=== PATIENT | female | born 1960 | race Caucasian/White ===

== ENCOUNTER → 2016-06-12 | Outpatient (CLI) | payer BC ==
[~2016-06-12] MED LIST: ACET1CAP18 PO; ALPR-138 PO; ALPR.25 PO; CHOL1TAB42 PO; IBUP400T20 PO; LEVO50TA4 PO; THYR15 OR
[2016-06-12 12:15] LABS: AUTOMATED NEUTROPHIL # 2.6 TH/MM3 (1.8-7.7); BASOPHIL % 0.5 % (0.0-2.0); EOSINOPHIL # 0.2 TH/MM3 (0-0.4); EOSINOPHIL % 3.1 % (0.0-4.0); HEMATOCRIT 43.4 % (35.0-46.0); HEMO FLAGS DIFF FINAL; LYMPH % 35.7 % (9.0-44.0); LYMPHOCYTE # 1.8 TH/MM3 (1.0-4.8); MEAN CELL VOLUME 88.6 FL (80.0-100.0); MEAN CORPUSCULAR HGB CONC 33.8 % (32.0-36.0); MONO % 8.6 % (0.0-8.0); NEUT % 52.1 % (16.0-70.0); PLATELET COUNT 260 TH/MM3 (150-450); RED BLOOD COUNT 4.91 MIL/MM3 (4.00-5.30); WHITE BLOOD COUNT 5.1 TH/MM3 (4.0-11.0)
[2016-06-12 12:26] LABS: BLOOD, URINE TRACE (NEG); GLUCOSE,URINE NEG (NEG); KETONE, URINE NEG (NEG); MUCUS URINE FEW /lpf (OCC); NITRITE,URINE NEG (NEG); PH, URINE 6.5 (5.0-8.5); SQUAMOUS EPITHELIAL CELL URINE 1 /hpf (0-5); URINE COLOR LIGHT-YELLOW (YELLW/STRAW)
[2016-06-12 12:47] LABS: BICARBONATE 31.8 MEQ/L (21.0-32.0); POTASSIUM 4.1 MEQ/L (3.5-5.1)
--- NOTE | 2016-06-12 15:58 | EKG ---
Date Performed: 06/12/2016 Time Performed: 11:34:06 PTAGE: 56 years EKG: Sinus rhythm NORMAL ECG NO PREVIOUS TRACING DOCTOR: Lance Pelaez Interpretating Date/Time 06/12/2016 15:57:34
== END ==
LOC: CPRE 10:49
PROVIDERS: ATTEND Obstetrics & Gynecology
DX: Z01.812 Encounter for preprocedural laboratory examination (principal); Z01.810 Encounter for preprocedural cardiovascular examination; D21.9 Benign neoplasm of connective and other soft tissue, unspecified
CPT/HCPCS: 36415; 80048; 81001; 84703; 85025; 93005

== ENCOUNTER 2016-06-15 05:27 | Observation (INO) | payer BC ==
--- NOTE | 2016-06-12 13:53 | MH ---
cc: JAVIER MEJIA DATE OF ADMISSION: 06/15/2016 ADMISSION DIAGNOSIS Multiple small fibroids causing pelvic pressure, constipation and bladder dysfunction. Menopause approximately one year ago. No postmenopausal bleeding. No history of abnormal Pap smear. HISTORY OF PRESENT CONDITION The patient is a 56-year-old white female, nulliparous, with LMP greater than 12 months ago. She had come into the office in March for an interval assessment of her fibroids. 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 She is being followed closely for her thyroid condition. She has had several laparoscopies, hysteroscopy and ablation with Dr. Velez and she is using bio identical hormones. On ultrasound she had a slightly enlarged endometrial stripe and moderately enlarged irregular uterus with normal adnexa, no fluid in the cul-de-sac. The fibroids appear stable on interval ultrasound and are not submucosal in nature. In March she expressed her strong desire to avoid a hysterectomy and asked if we would do a hysteroscopy to evaluate the intrauterine cavity to see if any fibroids could be removed from the intrauterine pathology. She did not get an endometrial biopsy at that time due to cervical stenosis. She comes in today scheduled for hysteroscopy and MyoSure. A very long discussion was performed with her and her about how we should look at what her symptomatology is and what her goals for surgery are. She has no bleeding pattern. She has a history of endometrial ablation. She has no cramping per say. What she has is constant pressure from the fibroids on both the bladder and on the rectum. On pelvic exam multiple small fibroids are palpable and irregular in nature, subserosal and on the surface of the uterus. The cervix is nulliparous and there is no descent. She wants to keep her cervix if at all possible. She has decided she wants to have her ovaries out. We therefore talked about laparoscopic-assisted supracervical hysterectomy with the use of a containment system to make sure that morcellation occurs in a contained environment and she would like to try this. We reviewed in detail the fact that uterine sarcoma cannot be diagnosed prior to surgery. We reviewed that we do not have the endometrial sampling preoperatively but again if this is placed in the bag the only cut intraoperatively would be across the cervix and will do this low enough that we have the endometrium intact. We talked about the risks of subsequent cervical pathology, the risks of having bleeding and having to do an open case removing the cervix. We talked about damage to bowel, bladder and blood vessels. At the end of the conversation she and her decided not to wait but rather reschedule the surgery instead of a hysteroscopic evaluation and possible MyoSure to do a laparoscopic supracervical hysterectomy with bilateral salpingo-oophorectomy with morcellation in the containment system. PAST MEDICAL HISTORY Her general health is good other than her hypothyroidism. She has no other chronic or systemic illnesses. ALLERGIES 1. COMPAZINE. 2. PEANUTS. 3. SOY. 4. PREDNISONE. SOCIAL HISTORY She does not smoke, drink or use illicit drugs. She tries to exercise regularly. She is 1, para 0. Her weight is 185 and she is 5 feet 7 inches, giving her a BMI of 29.8. FAMILY HISTORY Negative for breast, pelvic or colon cancer. REVIEW OF SYSTEMS She has no problem with her bowel or bladder or intercourse. She has no symptoms of menopause at this point. No postmenopausal bleeding. PHYSICAL EXAMINATION GENERAL: She is a minimally overweight white female. VITAL SIGNS: Weight 185, height 5 feet 7 inches, blood pressure 124/78. NECK: She has no thyroid enlargement. LUNGS: Her lungs are clear. HEART: Rate and rhythm are regular without murmur, heave or thrill. BREASTS: Previous exam was without dominant mass, nipple discharge, skin retraction or adenopathy. ABDOMEN: Benign. PELVIC: Perineum is estrogenized. The vault is elevated. She has a very narrow introitus and it is uncomfortable for her to tolerate any type of pelvic exam. The cervix is deep and elevated. It is nulliparous. The uterus is irregular with multiple small fibroids. Ovaries are not palpable. The uterus is mobile. Guaiac was negative. IMPRESSION/PLAN A menopausal female with multiple stable subserosal fibroids that are causing her chronic pressure and difficulty moving her bowels and bladder. There has been no bleeding since her menopause began over a year ago. She had only minimal bleeding prior to that due to an ablation with Dr. Velez. She has had several laparoscopes in the past and it is unclear if she is going to have any significant adhesions. Her goal is to address the issues as above and she feels comfortable with the plan that we have created. The risks, benefits, expectations, alternatives have been described in detail. She has signed consents and is scheduled for . MD JAY Pink/BT /1:11 PM /1:35 PM
[~2016-06-15] VITALS: Ht 170.2 cm; Wt 83.0 kg
[~2016-06-15 05:27] MED LIST changes: -ALPR-138 PO; -ALPR.25 PO; -IBUP400T20 PO; -THYR15 OR
[2016-06-15] MEDS ORDERED: LACTATED RINGER'S 1000 ML IV PRN (06:00)
[2016-06-15] MEDS ORDERED: POVIDONE IODINE 5% (ANTISEPSIS KIT) 4 APPLICATIONS EACH NARE PRN (06:00)
[2016-06-15] MEDS ORDERED: SODIUM CHLORID 0.9% 500 ML IV PRN (06:00)
[2016-06-15] MEDS ORDERED: ceFAZolin 2 GM PREMIX 50 ML IV SCH (06:00)
[2016-06-15] MEDS ORDERED: INSULIN HUMAN REGULAR 1,000 UNITS/10 ML VIAL SQ PRN (06:00)
[2016-06-15] MEDS ORDERED: CHLORHEXIDINE GLUCONATE 2 % 1 PACK (2 CLOTHS) TOPICAL PRN (06:00)
[2016-06-15] MEDS ORDERED: METOPROLOL TARTRATE 25 MG TAB PO PRN (06:00)
[2016-06-15 06:13] VITALS: BP 119/82; PULSE 82; RESP 18; TEMP 98.3; O2SAT 95
[2016-06-15] MEDS ORDERED: ACETAMINOPHEN 1000 MG/100 ML VIAL IV ONE (07:10)
[2016-06-15] MEDS ORDERED: DICLOFENAC SODIUM 37.5 MG/ML VIAL IV PUSH ONE (07:10)
[2016-06-15] MEDS ORDERED: fentaNYL CITRATE 250 MCG/5 ML AMP ONE (07:10)
[2016-06-15] MEDS ORDERED: MIDAZOLAM HCL 2 MG/2 ML VIAL ONE (07:10)
[2016-06-15] MEDS ORDERED: FAMOTIDINE 20 MG/2 ML VIAL ONE (07:11)
[2016-06-15] MEDS ORDERED: APREPITANT 40 MG CAP ONE (07:11)
[2016-06-15] MEDS ORDERED: ESTROGENS CONJUGATED VAG CREA 15 APPL/30 GM TUBE ONE (07:15)
[2016-06-15] MEDS ORDERED: VASOPRESSIN INJ 20 UNITS/ML VIAL ONE (07:15)
[2016-06-15] MEDS ORDERED: LIDOCAINE 1%/EPINEPHrine 1:100,000 SOLN 20 ML VIAL ONE (07:15)
--- NOTE | 2016-06-15 11:31 | PD.OP ---
Operative Report Date of Surgery: Jun 15, 2016 Preoperative Diagnosis: multiple fibroids with pressure and difficulty moving bowels and bladder Postoperative Diagnosis: same Procedure: LASH bilateral salpingectomy cystourethroscopy Surgeon: Earline Slater Ball Maker(s): Chance [id number] Operation and Findings: dictated uterus morcellated outside the body while contained in a bag ebl 200 Earline Slater MD Jun 15, 2016 11:31
--- NOTE | 2016-06-15 11:37 | HHI.DCPOC ---
Discharge Care Plan Report Symptoms to Your Doctor -Temperate above 100.5 degrees -Redness, of incision or excessive or foul smelling drainage -Unusual pain or calf pain -Increased vaginal bleeding -Painful or difficulty urinating -Feelings of extreme sadness or anxiety after 2 weeks Goals to Promote Your Health * To prevent worsening of your condition and complications * To maintain your health at the optimal level Directions to Meet Your Goals Take your medications as prescribed Follow your dietary instruction Follow activity as directed Ensure plenty of rest for recovery Drink fluids for hydration Keep your appointments as scheduled Take your immunizations and boosters as scheduled If your symptoms worsen call your PCP, if no PCP go to Urgent Care Center or Emergency Room Smoking is Dangerous to Your Health. Avoid second hand smoke Call the 24-hour crisis hotline for domestic abuse at Earline Slater MD Jun 15, 2016 11:37
[2016-06-15] MEDS ORDERED: *ONDANSETRON 4 MG VIAL PERIprocedural Use ONLY ONE (11:39)
[2016-06-15] MEDS ORDERED: oxyCODONE/ACETAMINOPHEN 5 MG/325 MG TAB PO PRN (11:45)
[2016-06-15] MEDS ORDERED: SODIUM CHLORIDE 0.9% FLUSH 10 ML FLUSH IV FLUSH PRN (11:45)
[2016-06-15] MEDS ORDERED: ONDANSETRON HCL 4 MG/2 ML VIAL IV PUSH ONE (12:00)
[2016-06-15] MEDS ORDERED: NEOSTIGMINE 3 MG/3 ML SYR IV ONE (12:00)
[2016-06-15] MEDS ORDERED: LACTATED RINGER'S 1000 ML INJ 1,000 ML IV ONE (12:00)
[2016-06-15] MEDS ORDERED: PROPOFOL 200 MG/20 ML AMP IV ONE (12:00)
[2016-06-15] MEDS ORDERED: DO NOT ADM ANY ANTICOAGULANT DRUGS PRN (12:15)
[2016-06-15] MEDS ORDERED: HALOPERIDOL LACTATE 5 MG/ML AMP IV ONE (12:30)
[2016-06-15] MEDS ORDERED: *morphine SULFATE 8 MG/ML PERIprocedure ONLY ONE (12:59)
[2016-06-15 20:00] VITALS: BP 120/77; PULSE 77; RESP 18; TEMP 97; O2SAT 98
[2016-06-15] MEDS: SODIUM CHLORIDE 0.9% FLUSH 10 ML FLUSH IV FLUSH SCH (21:00)
[2016-06-15 23:38] VITALS: BP 119/66; PULSE 90; RESP 16; TEMP 97.1; O2SAT 97
[2016-06-16] MEDS: oxyCODONE/ACETAMINOPHEN 5 MG/325 MG TAB PO PRN ×4 (02:54→19:48)
[2016-06-16 04:00] VITALS: BP 119/79; PULSE 105; RESP 16; TEMP 99.1; O2SAT 98
[2016-06-16 08:00] VITALS: BP 123/67; PULSE 86; RESP 18; TEMP 97.2; O2SAT 97
[2016-06-16 08:49] VITALS: O2SAT 97
[2016-06-16] MEDS: SODIUM CHLORIDE 0.9% FLUSH 10 ML FLUSH IV FLUSH SCH (09:00)
--- NOTE | 2016-06-16 09:20 | HHI.PR ---
Subjective Remarks Doing well, pain is well controlled, eating well. pain at LLQ inicision site Objective Vital Signs Vital Signs Date Time Temp Pulse Resp B/P Pulse Ox O2 Delivery O2 Flow Rate FiO2 06/16/16 08:49 97 Nasal Cannula 2.00 06/16/16 08:00 97.2 86 18 123/67 97 06/16/16 04:02 18 06/16/16 04:00 99.1 105 16 119/79 98 06/15/16 23:38 97.1 90 16 119/66 97 06/15/16 20:00 97.0 77 18 120/77 98 06/15/16 17:54 Nasal Cannula 2.00 06/15/16 14:50 97.0 58 16 111/67 99 Nasal Cannula 2 06/15/16 14:30 58 16 111/67 99 Nasal Cannula 2 06/15/16 14:00 58 16 101/62 99 Nasal Cannula 2 06/15/16 13:00 82 16 115/72 99 Nasal Cannula 2 06/15/16 12:45 53 16 116/71 99 Nasal Cannula 2 06/15/16 12:30 64 14 111/66 99 Nasal Cannula 2 06/15/16 12:15 58 14 113/73 99 Nasal Cannula 2 06/15/16 12:00 58 14 112/71 99 Nasal Cannula 3 06/15/16 11:45 64 14 123/75 99 Nasal Cannula 3 06/15/16 11:25 96.9 96 12 114/69 99 Nasal Cannula 3 I/O 06/15/16 06/15/16 06/15/16 06/16/16 06/16/16 06/16/16 07:00 15:00 23:00 07:00 15:00 23:00 Intake Total 1480 ml 143 ml 288 ml Output Total 1000 ml 2300 ml 500 ml Balance 480 ml 143 ml -2300 ml -212 ml Intake IV Total 180 ml 143 ml 288 ml Other 1300 ml Output Urine Total 800 ml 2300 ml 500 ml Estimated Blood Loss 200 ml Objective Remarks Chest is clear, regular rate and rhythm. Abdomen is soft and non-distended. Incisions clean and dry. No hematoma strips in place Ext no CCE. A/P Assessment and Plan Post Op Day 1 Doing well Home today and return to office in two weeks. Earline Slater MD Jun 16, 2016 09:20
[2016-06-16 12:00] VITALS: BP 116/81; PULSE 80; RESP 20; TEMP 96; O2SAT 95
[2016-06-16 16:00] VITALS: BP 136/74; PULSE 91; RESP 20; TEMP 97.1; O2SAT 96
--- NOTE | 2016-06-18 18:20 | MP ---
cc: ROBERTOEARLINE DATE OF 1960 DATE OF SURGERY June 15, 2016 PREOPERATIVE DIAGNOSIS Multiple uterine fibroids in post menopause causing significant pelvic pressure and difficulty with bowels and bladder. POSTOPERATIVE DIAGNOSIS Multiple uterine fibroids in post menopause causing significant pelvic pressure and difficulty with bowels and bladder. PROCEDURE Laparoscopic-assisted supracervical hysterectomy and bilateral salpingectomy. Cystourethroscopy. SURGEON Earline Slater MD FISH ICER Chance, ____ MS-3. FINDINGS Examination under anesthesia revealed an enlarged uterus with multiple irregular fibroids. Ovaries were not palpable. Uterus was mobile. Upon entering the peritoneal cavity, the liver edge, gallbladder, appendix were all normal. Ovaries appeared to be postmenopausal with no pathology. There was no evidence of adhesions, endometriosis or neoplasm. She had multiple fibroids, one that was larger than the corpus of the uterus. These did distort the uterus and extended to the sidewall on her left. The cul-de-sac however was clear and there were no adhesions and planes were easy to identify. The uterus and tubes were detached from the lateral structures down to the level of the cervix. Then the harmonic scalpel was used to excise the lower uterine segment and endocervix from the remaining cervix in place. This was in a single piece and then placed into a bag. Initial thoughts were to try to power morcellate in the bag. The size of the uterus led to discomfort with this thought process and instead the left lower quadrant incision was slightly enlarged. The bag was brought up to the incision and then the uterus was gradually pulled out of the bag and cut out in pieces so that power morcellation was not used and at no time did endometrium or myometrium come in contact with the peritoneal cavity. Everything was removed in its entirety and sent to pathology. Copious irrigation was performed. There was no evidence of any iatrogenic injury. There was no bleeding. No Interceed or Alannah placed. Cystoscopy was performed showing normal bladder with no iatrogenic or intrinsic pathology. Good flow from both ureteral orifice. Sponge, instrument and needle count correct. She tolerated the procedure well. Due to the length of the case decision was made to keep overnight with a Watt catheter in place. PROCEDURE The patient was identified as Gissel Weeks. Her permit was reviewed with her in holding. She had decided to keep her ovaries. She was taken to the operating room, having received 2 grams Ancef, prepped and draped in usual sterile fashion after induction of general anesthesia. She was in dorsal lithotomy position. A time-out was performed with all in attending. A Watt catheter was placed and then an acorn tenaculum placed in the os and stabilized with a single-tooth tenaculum. Attention was directed to the abdomen. A 5 mm incision was made in the umbilicus after lidocaine and then the trocar and sleeve were placed under direct visualization. Systematic evaluation of the abdominal and pelvic contents was performed with the findings as noted above. Then a 5 mm incision was made in both the right lower quadrant and a 5 mL port placed under direct visualization. A 12 mm incision was made in the left lower quadrant with transillumination and then the sleeve was left in place. The harmonic scalpel was used to transect the right round ligament and dissect the broad ligament off the irregular fibroids in the anterior uterus. This was done to continuously push the bladder inferiorly and laterally and this was taken down to the level of the uterosacral. This was repeated on the opposite side with some difficulty due to distortion of the broad ligament and extension of fibroids toward the sidewall. Other than some visualization issues because of the fibroids this was unremarkable and again the tube was placed on gentle traction and the tubo-ovarian ligament was transected and subsequent pedicles taken down to the level of the uterosacral. There was some backbleeding from a fibroid anteriorly which was rendered hemostatic. It was felt that the bladder was adequately pushed downward and then the harmonic scalpel was used to cut across between the lower uterine segment and the cervix actually well into the cervix so that only the external centimeter of cervix was left in place. The entire endometrial cavity was contained in the sample that was intact and floating free in the abdominal cavity. The acorn tenaculum had the majority of mental tip exposed in the intraperitoneal cavity. There appeared to be no bleeding from any pedicles. This was then placed in a very large bag that went through the left lower quadrant incision and port. The uterus, tubes filled the bag and the thought of power morcellation in the bag was considered, but it was felt that the bag was too fragile and would be broken very easily by the blades of the morcellator and then we would not be able to adequately contained the sample. Decision was therefore made to take the bag and bring it up to the incision, slightly enlarge the incision and pull the uterus through the incision and morcellate it using a knife and Desai scissors. This was done tediously over the course of 40 minutes but successful and then that particular incision was closed on the fascia with some 3-0 on the subcutaneous tissue and 4-0 on the skin. Then the abdomen was reinsufflated and systematic evaluation performed showing there was complete hemostasis and irrigation was performed, removed and the pneumoperitoneum was released under direct visualization. The irrigation system was used to fill the bladder through the Watt with about 300 mL. Then the Watt was removed and the laparoscope placed into this bladder showing normal bladder mucosa, normal ureteral flow and no evidence of iatrogenic or intrinsic pathology. Then the Watt catheter was replaced. She was placed in dorsal supine position. Her other two incisions were closed with a fascial stitch in the right lower quadrant and then the skin with Monocryl. Estimated blood loss of 200 mL. Sponge, instrument, needle count correct. She tolerated the procedure well. MD JAY Pink/KK /11:23 AM /5:55 PM
== END 2016-06-16 20:57 | disposition home or self-care (01) ==
LOC: HSDC 05:27 → HSDI 11:34 → N07B 15:13
PROVIDERS: ADMIT Obstetrics & Gynecology; ATTEND Obstetrics & Gynecology
DX: D25.2 Subserosal leiomyoma of uterus (principal); Z01.810 Encounter for preprocedural cardiovascular examination
CPT/HCPCS: 00840; 36415; 58544; 80048; 81001; 84703; 85025; 86850; 86900; 86901; 88305; 88307; 93005; G0378; J0131; J0690; J1130; J1630; J2250; J2270; J2405; J2710; J3010; J7120; J8501

== ENCOUNTER 2017-11-05 12:23 | Inpatient (IN) ==
[2017-11-05] MEDS ORDERED: Sod Chloride 0.9% Inj 1,000 ML IV.SIG ONE (12:56)
[2017-11-05] MEDS ORDERED: Ciprofloxacin 400 MG/200 ML 400 MG/200 ML PIGGYBACK IV.SIG ONE (13:16)
[2017-11-05] MEDS ORDERED: Morphine Inj 4 MG/ML Vial IV.PUSH ONE (13:31)
--- NOTE | 2017-11-05 13:38 | ED ---
HPI General Chief Complaint: Abdominal Pain Stated Complaint: Sent by Dr. Nieves Time Seen by Provider: 11/05/17 12:52 Source: patient Mode of arrival: ambulatory Limitations: no limitations History of Present Illness HPI narrative: Patient is a 57-year-old female that presents today with a CC of "abdominal pain" after an endoscopy procedure. The patient is being referred by Dr. Nieves. The patient reports that the abdominal pain is more discomforting than painful and that she noticed it immediately after waking from the endoscopy procedure. The pain is felt from the shoulders and neck down to the lower abdomen. The patient describes the discomfort as, "bloated and gassy." She rates the abdominal pain as a 6/10 on a pain scale with 1 representing no pain and 10 representing the worst pain. Patient is experiencing some anxiety due to her current condition and has expressed concern about the severity of this procedural complication. Patient denies any SOB or N/V. States abdominal pain feels more like bloating. Denies any bowel movement or urinary issues. Has not eaten anything since last night. No blood thinners. Related Data Home Medications Medication Instructions Recorded Confirmed EstroGel 1 dose TOPICAL DAILY 11/05/17 11/05/17 levothyroxine 75 mg PO DAILY 11/05/17 11/05/17 Allergies Allergy/AdvReac Type Severity Reaction Status Date / Time broccoli Allergy Severe Gastrointestinal Verified 11/05/17 14:18 Upset prednisone Allergy Severe Hallucinati Unverified 11/05/17 13:35 ons soy fiber Allergy Severe MIGRAINE Unverified 10/11/16 02:25 prochlorperazine Allergy Mild THROAT Unverified 10/11/16 02:25 SWELLS sesame oil Allergy Mild Hives Verified 11/05/17 13:35 sesame seed Allergy Mild Hives Verified 11/05/17 13:35 lecithin, soy AdvReac Severe MIGRAINE Unverified 10/11/16 02:25 soy AdvReac Severe MIGRAINE Unverified 10/11/16 02:25 soybean AdvReac Severe MIGRAINE Unverified 10/11/16 02:25 Review of Systems ROS: all other systems reviewed are negative PENDING SALE TO [facility] Medical History Medical History Hx of endoscopy (Acute) Migraine (Chronic) Hypothyroidism (Chronic) H/O: hysterectomy (Chronic) Social History Social History Second Hand Smoke Exposure: No Smoking Status: Never smoker How Often Do You Have a Drink Containing Alcohol: Monthly or less Recent Travel in [place] within the Last 8 Weeks: No Recent Out of Country Travel within the Last 8 Weeks: No Exam Narrative Exam Narrative: GENERAL: Patient is a well delveloped, well nourished female that appears in some discomfort. Patient is sitting in the exam chair and is in no acute distress. SKIN: Focused skin assessment warm/dry. HEAD: Atraumatic. Normocephalic. EYES: Pupils equal and round. No scleral icterus. No injection or drainage. ENT: No nasal bleeding or discharge. Mucous membranes pink and moist. NECK: Trachea midline. No JVD. CARDIOVASCULAR: Regular rate and rhythm. No murmur appreciated. RESPIRATORY: No accessory muscle use. Clear to auscultation. Breath sounds equal bilaterally. GASTROINTESTINAL: Abdomen soft, tender to palpation, and mildly distended. Hepatic and splenic margins not palpable. MUSCULOSKELETAL: No obvious deformities. No clubbing. No cyanosis. No edema. NEUROLOGICAL: Awake and alert. No obvious cranial nerve deficits. Motor grossly within normal limits. Normal speech. PSYCHIATRIC: Appropriate mood and affect; insight and judgment normal. Patient is anxious due to current condition. Course Initial Documented Vital Signs Temperature 97.5 F L 11/05/17 12:32 Pulse Rate 94 H 11/05/17 12:32 Respiratory Rate 18 11/05/17 12:32 Blood Pressure 159/102 H 11/05/17 12:32 Pulse Oximetry 100 11/05/17 12:32 Last Documented Vital Signs Temperature 97.5 F L 11/05/17 12:32 Pulse Rate 73 11/05/17 16:24 Respiratory Rate 16 11/05/17 16:24 Blood Pressure 148/77 H 11/05/17 16:24 Pulse Oximetry 98 11/05/17 16:24 Medical Decision Making MARY Attestation MARY supervised visit: Yes Attestation: I, Dr. Ross, have reviewed the advance practice practitioner's documentation and am in agreement, met with the patient face to face, made the diagnosis, and the medical decision making was done by me. *My assessment and Findings: Case is seen and evaluated with PA, please see PA notes for further details. Sent here by GI Dr. Nieves for free air under the diaphragm after endoscopy, concerning for perforation of the esophagus. Case was discussed with him and he wanted to further workup including CAT scanning for evaluation of perforation site. Worry for mediastinitis especially with perforation. IV antibiotics were initiated as a prophylactic precaution. CAT scan did not show obvious areas where the perforation is, and at this point, patient was seen in the ER by Dr. Nieves's partner, , and he states that this point he still wants the patient to be medically admitted for further observation. MDM Narrative Medical decision making narrative: 57-year-old female that presents to the ED for evaluation of possible perforated esophagus. Labs and imaging were ordered. Case was discussed with Dr. Nieves over the phone who wanted the patient to be admitted to [facility] and general consult to general surgery as well as to his partner. This was discussed with the patient and the family who agree with plan. Labs and imaging order. CT is ordered. CT is did show air. Otherwise unremarkable. No sign of perforated bowel at this time. Dr. Bean , came here and evaluated the patient. Dr. Coyne as well. At this time the recommend observation and trial of antibiotics. Patient was given morphine for pain. Started on Cipro and Flagyl by me. Patient was admitted to Dr Trent that he agrees to admission. Case discussed with my attending Dr. Luu who agrees with admission. Medical Screen Exam Complete: Yes Emergency Medical Condition: Yes Differential Diagnosis Differential Diagnosis: Perforated bowel versus chest pain versus acute abdomen versus postprocedural complication Medical Records Medical records reviewed: Yes I reviewed the patient's medical records. Lab Data Lab results reviewed: Yes I reviewed the patient's lab results. Result diagrams: 11/05/17 13:50 11/05/17 13:50 Lab Results 11/05/17 11/05/17 11/05/17 Range/Units 13:45 13:50 13:50 WBC 13.6 H (4.0-11.0) th/mm3 RBC 5.06 (4.00-5.30) mil/mm3 Hgb 15.5 H (11.6-15.3) gm/dL Hct 46.6 H (35.0-46.0) % MCV 92.0 (80.0-100.0) fL MCH 30.7 (27.0-34.0) pg MCHC 33.3 (32.0-36.0) % RDW 13.8 (11.6-17.2) % Plt Count 288 (150-450) th/mm3 MPV 8.0 (7.0-11.0) fL Neut % (Auto) 81.0 H (16.0-70.0) % Lymph % (Auto) 12.5 (9.0-44.0) % [place] % (Auto) 5.4 (0.0-8.0) % Eos % (Auto) 0.9 (0.0-4.0) % Baso % (Auto) 0.2 (0.0-2.0) % Neut # (Auto) 11.0 H (1.8-7.7) th/mm3 Lymph # (Auto) 1.7 (1.0-4.8) th/mm3 [place] # (Auto) 0.7 (0.0-0.9) th/mm3 Eos # (Auto) 0.1 (0.0-0.4) th/mm3 Baso # (Auto) 0.0 (0.0-0.2) th/mm3 WBC Differential . Differential Comment Auto diff final PT 10.7 (9.8-11.6) sec INR 1.1 Ratio APTT 27.8 (24.3-30.1) sec Sodium (136-145) meq/L Potassium (3.5-5.1) meq/L Chloride (98-107) meq/L Carbon Dioxide (21.0-32.0) meq/L Anion Gap (5-15) meq/L BUN (7-18) mg/dL Creatinine (0.50-1.00) mg/dL Estimated GFR (>89) mL/min Random Glucose (74-106) mg/dL Lactic Acid (0.4-2.0) mmol/L Calcium (8.5-10.1) mg/dL Total Bilirubin (0.2-1.0) mg/dL AST (15-37) U/L ALT (10-53) U/L Alkaline Phosphatase (45-117) U/L Total Protein (6.4-8.2) g/dL Albumin (3.4-5.0) g/dL Lipase (73-393) U/L Urine Color Yellow (Yellw/Straw) Urine Clarity Clear (Clear) Urine pH 6.0 (5.0-8.5) Ur Specific [place] 1.013 (1.002-1.035) Urine Protein Negative (Neg-Trace) mg/dL Urine Glucose (UA) Negative (Negative) mg/dL Urine Ketones Trace H (Negative) mg/dL Urine Occult Blood Negative (Negative) Urine Nitrate Negative (Negative) Urine Bilirubin Negative (Negative) Urine Urobilinogen Less than 2 (Less than 2) mg/dL Ur Leukocyte Esterase Negative (Negative) Urine RBC 1 (0-3) /hpf Urine WBC Less than 1 (0-5) /hpf Ur Squamous Epith Cells 1 (0-5) /hpf Micro UA Comment Culture not ind Ur Microscopic Review Not Reportable Urine Culture Comments Culture not ind 11/05/17 11/05/17 Range/Units 13:50 13:50 WBC (4.0-11.0) th/mm3 RBC (4.00-5.30) mil/mm3 Hgb (11.6-15.3) gm/dL Hct (35.0-46.0) % MCV (80.0-100.0) fL MCH (27.0-34.0) pg MCHC (32.0-36.0) % RDW (11.6-17.2) % Plt Count (150-450) th/mm3 MPV (7.0-11.0) fL Neut % (Auto) (16.0-70.0) % Lymph % (Auto) (9.0-44.0) % [place] % (Auto) (0.0-8.0) % Eos % (Auto) (0.0-4.0) % Baso % (Auto) (0.0-2.0) % Neut # (Auto) (1.8-7.7) th/mm3 Lymph # (Auto) (1.0-4.8) th/mm3 [place] # (Auto) (0.0-0.9) th/mm3 Eos # (Auto) (0.0-0.4) th/mm3 Baso # (Auto) (0.0-0.2) th/mm3 WBC Differential Differential Comment PT (9.8-11.6) sec INR Ratio APTT (24.3-30.1) sec Sodium 143 (136-145) meq/L Potassium 3.4 L (3.5-5.1) meq/L Chloride 105 (98-107) meq/L Carbon Dioxide 29.0 (21.0-32.0) meq/L Anion Gap 9 (5-15) meq/L BUN 12 (7-18) mg/dL Creatinine 1.01 H (0.50-1.00) mg/dL Estimated GFR 57 L (>89) mL/min Random Glucose 101 (74-106) mg/dL Lactic Acid 2.2 H (0.4-2.0) mmol/L Calcium 9.0 (8.5-10.1) mg/dL Total Bilirubin 1.0 (0.2-1.0) mg/dL AST 20 (15-37) U/L ALT 25 (10-53) U/L Alkaline Phosphatase 76 (45-117) U/L Total Protein 8.2 (6.4-8.2) g/dL Albumin 4.0 (3.4-5.0) g/dL Lipase 159 (73-393) U/L Urine Color (Yellw/Straw) Urine Clarity (Clear) Urine pH (5.0-8.5) Ur Specific [place] (1.002-1.035) Urine Protein (Neg-Trace) mg/dL Urine Glucose (UA) (Negative) mg/dL Urine Ketones (Negative) mg/dL Urine Occult Blood (Negative) Urine Nitrate (Negative) Urine Bilirubin (Negative) Urine Urobilinogen (Less than 2) mg/dL Ur Leukocyte Esterase (Negative) Urine RBC (0-3) /hpf Urine WBC (0-5) /hpf Ur Squamous Epith Cells (0-5) /hpf Micro UA Comment Ur Microscopic Review Urine Culture Comments Imaging Data Attestation: I personally reviewed and interpreted this imaging study as follows : Radiologist's impression: Abdomen/Pelvis CT 11/05/17 14:26 CONCLUSION: Free intraperitoneal air following EGD. Gastrografin swallow is pending. Chest CT 11/05/17 14:26 CONCLUSION: 1. Free mediastinal air and intraperitoneal air as described above following EGD. Discharge Plan Discharge Disposition Patient Disposition: 30 Still Patient Discharge Condition Condition: Stable Discharge Details Anticipated Discharge Date: 11/05/17 Diagnosis: Esophageal perforation Physicians Team ED Provider: Martín Ross ED Midlevel Provider: David Su Primary Care Provider: Segundo Hunt Attending Provider: Hank Trent Other Providers: Taz Coyne Rxs /Orders / Referrals /Forms Prescriptions: No Action EstroGel 1 dose Topical DAILY RF: 0 levothyroxine 75 mg PO DAILY RF: 0 Discharge Interventions Interventions: Vital Signs Last Done: 11/05/17 16:24 Status ED Status: Admitted Patient
[2017-11-05 14:15] LABS: Baso % (Auto) 0.2 % (0.0-2.0); Eos # (Auto) 0.1 th/mm3 (0.0-0.4); Eos % (Auto) 0.9 % (0.0-4.0); Hematocrit 46.6 % (35.0-46.0); Hemoglobin 15.5 gm/dL (11.6-15.3); Lymph # (Auto) 1.7 th/mm3 (1.0-4.8); Lymph % (Auto) 12.5 % (9.0-44.0); Mean Corpuscular HGB Conc 33.3 % (32.0-36.0); Mean Corpuscular Hemoglobin 30.7 pg (27.0-34.0); Mono # (Auto) 0.7 th/mm3 (0.0-0.9); Mono % (Auto) 5.4 % (0.0-8.0); Platelet Count 288 th/mm3 (150-450); Red Blood Count 5.06 mil/mm3 (4.00-5.30); Red Cell Distribution Width 13.8 % (11.6-17.2); White Blood Count 13.6 th/mm3 (4.0-11.0)
[2017-11-05 14:17] LABS: Bilirubin,Urine Negative (Negative); Clarity,Urine Clear (Clear); Color,Urine Yellow (Yellw/Straw); Glucose,Urine (UA) Negative (Negative); Leukocyte Esterase,Urine Negative (Negative); Nitrite,Urine Negative (Negative); Specific Gravity,Urine 1.013 (1.002-1.035); Squamous Epithelial Cell,Urine 1 /hpf (0-5)
[2017-11-05 14:29] LABS: Activated Partial Thrombo Time 27.8 sec (24.3-30.1); INR 1.1 Ratio; Prothrombin Time 10.7 sec (9.8-11.6)
[2017-11-05 14:34] LABS: Alanine Aminotransferase 25 U/L (10-53); Anion Gap 9 meq/L (5-15); Aspartate Aminotransferase 20 U/L (15-37); Blood Urea Nitrogen 12 mg/dL (7-18); Chloride 105 meq/L (98-107); Glomerular Filtration Rate 57 mL/min (>89); Glucose,Random 101 mg/dL (74-106); Lipase 159 U/L (73-393); Potassium 3.4 meq/L (3.5-5.1); Sodium 143 meq/L (136-145)
[2017-11-05 14:37] LABS: Alkaline Phosphatase 76 U/L (45-117); Total Protein 8.2 g/dL (6.4-8.2)
--- NOTE | 2017-11-05 16:23 | CT ---
EXAM DATE: 11/05/2017 4:13 PM EDT AGE/SEX: 57 years / Female INDICATIONS: Chest and abdominal pain after recent EGD. CLINICAL DATA: This is the patient's initial encounter. Patient reports that signs and symptoms have been present for 1 day and indicates a pain score of 4/10. MEDICAL/SURGICAL HISTORY: Hypothyroidism. Hysterectomy. RADIATION DOSE: 5.64 CTDI (mGy) ; Combined studies COMPARISON: No prior exams available for comparison. TECHNIQUE: Multiple contiguous axial images were obtained through the chest during bolus infusion of 85 ml Omnipaque 350 (iohexol) nonionic water-soluble contrast as a cumulative dose for multiple exa ms. Images were obtained in suspended respiration using multiple row detector helical technique. U sing automated exposure control and adjustment of the mA and/or kV according to patient size, radiati on dose was kept as low as reasonably achievable to obtain optimal diagnostic quality images. DICOM format image data is available electronically for review and comparison. FINDINGS: There is free intraperitoneal and mediastinal air following EGD. There is no pneumothorax. There is n o central pulmonary emboli. There is no mediastinal or axillary adenopathy CONCLUSION: 1. Free mediastinal air and intraperitoneal air as described above following EGD. Electronically signed by: Zeeshan Kitchen MD 11/05/2017 4:21 PM EDT
--- NOTE | 2017-11-05 16:25 | CT ---
EXAM DATE: 11/05/2017 4:15 PM EDT AGE/SEX: 57 years / Female INDICATIONS: Chest and abdominal pain after recent EGD. CLINICAL DATA: This is the patient's initial encounter. Patient reports that signs and symptoms have been present for 1 day and indicates a pain score of 5/10. MEDICAL/SURGICAL HISTORY: Hyperthyroidism. Hysterectomy. ORAL CONTRAST: No oral contrast ingested. RADIATION DOSE: 5.64 CTDI (mGy) ; Combined studies COMPARISON: No prior exams available for comparison. TECHNIQUE: Multiple contiguous axial images were obtained through the abdomen and pelvis following b olus infusion of 85 ml Omnipaque 350 (iohexol) nonionic water-soluble contrast as a cumulative dose for multiple exams. No oral contrast ingested. Using automated exposure control and adjustment of t he mA and/or kV according to patient size, radiation dose was kept as low as reasonably achievable to obtain optimal diagnostic quality images. DICOM format image data is available electronically for r eview and comparison. FINDINGS: Again seen is the free intraperitoneal air following EGD. Liver, spleen, pancreas and adrenals unremarkable Symmetrical renal function without mass. Pelvic contents are unremarkable. The portion of the bony skeleton visualized is unremarkable. CONCLUSION: Free intraperitoneal air following EGD. Gastrografin swallow is pending. Electronically signed by: Zeeshan Kitchen MD 11/05/2017 4:24 PM EDT
[2017-11-05] MEDS ORDERED: Diatrizoate Meglum/Diatrizoate Sod Liq 120 ML Bottle (for RAD diag) ONE (16:30)
[2017-11-05] MEDS: KCL 20 mEq/D5W/NaCl 0.9% Inj 1,000 ML IV.CONT SCH (17:18)
--- NOTE | 2017-11-05 17:23 | FL ---
EXAM DATE: 11/05/2017 4:59 PM EDT AGE/SEX: 57 years / Female INDICATIONS: Evaluate for perforation. Recent EGD. CLINICAL DATA: This is the patient's subsequent encounter. Patient reports that signs and symptoms h ave been present for 1 day and indicates a pain score of 8/10. MEDICAL/SURGICAL HISTORY: . Hypothyroidism. . Hysterectomy. COMPARISON: No prior exams available for comparison. FLUORO TIME: 1.6 IMAGE COUNT: 10 FINDINGS: Gastrografin swallow was performed to evaluate mediastinal air following gastroesophageal dilatation at the GE junction. Gastrografin flows easily through the gastroesophageal junction without evidence for leak or extravasation. Free intraperitoneal air is again seen on the upright chest x-ray. CONCLUSION: Point of leak is not identified. Electronically signed by: Zeeshan Kitchen MD 11/05/2017 5:22 PM EDT
--- NOTE | 2017-11-05 18:22 | P.HP ---
[facility] of Present Illness [facility] Primary [facility] Physician: Segundo Hunt DO Chief Complaint: Abdominal pain History of Present Illness: Patient is a very pleasant 57-year-old female history of hypothyroidism who had an EGD done this morning because of difficulty swallowing recently. Patient denies any weight loss. Right after procedure patient suddenly experienced severe pain from lower abdomen going up to the neck area. She describes like a feeling of huge amount of gas in the stomach to the chest wall. A CT of the abdomen was promptly done which showed positive free intraperitoneal air. Patient feels nauseous but no vomiting. Denies any fever or chills. When asked for the indication for the EGD patient states that she had had this done twice before. Had hiatal hernia in 2012 and was placed on PPI then and was weaned off. Was doing well until 2014 when patient started having difficulty swallowing. An EGD done then showed Schatzki's ring and dilatation was performed. Recurrence of symptoms prompted consult for repeat EGD With increasing difficulty swallowing patient lately states she had to really cut up the food into small pieces to be able to eat them. pateint admitted for further observation and evaluation Inpatient Certification: I certify that the inpatient services were ordered in accordance with Medicare regulations governing the order. This includes certification that hospital inpatient services are reasonable and necessary and in the case of services not specified as inpatient-only under 42 CFR 419.22(n), that they are appropriately provided as inpatient services in accordance to with the 2-midnight benchmark under 43 CFR 412.3(e) Estimated Total Length of Stay (Days): 3 Plans for Post Hospital Care: Not yet determined Review of Systems No fever no chills no chest pain no shortness of breath no weight loss history of dysphagia on and off. Denies any bleeding tendencies PMFSH - History History Provided By: Patient - Medical History Medical History: Medical History (Last Updated 11/05/17 @ 14:17 by Lia Garcia RN) Hx of endoscopy (Acute) Migraine (Chronic) Hypothyroidism (Chronic) H/O: hysterectomy (Chronic) - Tobacco History Second Hand Smoke Exposure: No Smoking Status: Never smoker - Alcohol History How Often Do You Have a Drink Containing Alcohol: Monthly or less - Travel History Recent Travel in the [place] Within the Last 8 Weeks: No Recent Travel Out of the Country Within the Last 8 Weeks: No - Immunization History Tetanus Immunization: Unsure Hx Influenza Vaccine This Season: No Medications and Allergies Active Medications: Active Medications Potassium Chloride/Dextrose/Sod Cl (D5w/Ns + Kcl 20 Meq Inj) 1,000 mls @ 84 mls /hr IV.CONT .[id number] [facility]URUS Last Admin: 11/05/17 17:18 Dose: 84 mls/hr Metronidazole/Sodium Chloride (Flagyl 500 Mg Inj) 100 mls @ 100 mls/hr IV.SIG Q8H [facility] Ciprofloxacin/Dextrose (Cipro 400 Mg/200 Ml Inj) 400 mg in 200 mls @ 200 mls/ hr IV.SIG Q12H [facility] Morphine Sulfate (Morphine Inj) 2 mg IV.PUSH Q4H PRN PRN Reason: ABDOMINAL PAIN Pantoprazole Sodium (Protonix Inj) 40 mg IV.PUSH Q24H [facility] Allergies Allergy/AdvReac Type Severity Reaction Status Date / Time broccoli Allergy Severe Gastrointestinal Verified 11/05/17 14:18 Upset prednisone Allergy Severe Hallucinati Unverified 11/05/17 13:35 ons soy fiber Allergy Severe MIGRAINE Unverified 10/11/16 02:25 prochlorperazine Allergy Mild THROAT Unverified 10/11/16 02:25 SWELLS sesame oil Allergy Mild Hives Verified 11/05/17 13:35 sesame seed Allergy Mild Hives Verified 11/05/17 13:35 lecithin, soy AdvReac Severe MIGRAINE Unverified 10/11/16 02:25 soy AdvReac Severe MIGRAINE Unverified 10/11/16 02:25 soybean AdvReac Severe MIGRAINE Unverified 10/11/16 02:25 Home Medications Medication Instructions Recorded Confirmed Type EstroGel 1 dose TOPICAL DAILY 11/05/17 11/05/17 History levothyroxine 75 mg PO DAILY 11/05/17 11/05/17 History Exam Vital signs: Vital Signs 11/05/17 12:32 11/05/17 16:24 Temperature 97.5 F L Pulse Rate 94 H 73 Respiratory Rate 18 16 Blood Pressure 159/102 H 148/77 H Pulse Oximetry 100 98 Intake & Output 11/04/17 11/05/17 11/05/17 18:59 06:59 18:59 Intake Total 1300 / 1300 Balance 1300 / 1300 Weight 83.007 kg Intake: IV 1300 / 1300 Cipro 400 MG/200 ML Inj 400 mg 200 / 200 In 200 ml @ 200 mls/hr IV.SIG ONCE ONE Rx#:[id number] Flagyl 500 MG Inj 100 ML @ 100 100 / 100 mls/hr IV.SIG ONCE ONE Rx#: [id number] Narrative: Awake alert oriented 3 not in any form of distress Anicteric sclerae pink palpebral conjunctivae Neck supple no nuchal rigidity Chest lungs bilateral breath sounds equal no rales no wheezes heart regular rhythm Abdomen soft flabby nontender with good bowel sounds no guarding or rebound Extremities no edema Neurologic exam unremarkable Results - Labs CBC & Chem 7: 11/06/17 08:17 11/07/17 07:14 Labs: Laboratory Results - last 24 hr 11/05/17 11/05/17 11/05/17 13:45 13:50 13:50 WBC 13.6 H RBC 5.06 Hgb 15.5 H Hct 46.6 H MCV 92.0 MCH 30.7 MCHC 33.3 RDW 13.8 Plt Count 288 MPV 8.0 Neut % (Auto) 81.0 H Lymph % (Auto) 12.5 [place] % (Auto) 5.4 Eos % (Auto) 0.9 Baso % (Auto) 0.2 Neut # (Auto) 11.0 H Lymph # (Auto) 1.7 [place] # (Auto) 0.7 Eos # (Auto) 0.1 Baso # (Auto) 0.0 WBC Differential . Differential Comment Auto diff final PT 10.7 INR 1.1 APTT 27.8 Sodium Potassium Chloride Carbon Dioxide Anion Gap BUN Creatinine Estimated GFR Random Glucose Lactic Acid Calcium Total Bilirubin AST ALT Alkaline Phosphatase Total Protein Albumin Lipase Urine Color Yellow Urine Clarity Clear Urine pH 6.0 Ur Specific [place] 1.013 Urine Protein Negative Urine Glucose (UA) Negative Urine Ketones Trace H Urine Occult Blood Negative Urine Nitrate Negative Urine Bilirubin Negative Urine Urobilinogen Less than 2 Ur Leukocyte Esterase Negative Urine RBC 1 Urine WBC Less than 1 Ur Squamous Epith Cells 1 Micro UA Comment Culture not ind Ur Microscopic Review Not Reportable Urine Culture Comments Culture not ind 11/05/17 11/05/17 13:50 13:50 WBC RBC Hgb Hct MCV MCH MCHC RDW Plt Count MPV Neut % (Auto) Lymph % (Auto) [place] % (Auto) Eos % (Auto) Baso % (Auto) Neut # (Auto) Lymph # (Auto) [place] # (Auto) Eos # (Auto) Baso # (Auto) WBC Differential Differential Comment PT INR APTT Sodium 143 Potassium 3.4 L Chloride 105 Carbon Dioxide 29.0 Anion Gap 9 BUN 12 Creatinine 1.01 H Estimated GFR 57 L Random Glucose 101 Lactic Acid 2.2 H Calcium 9.0 Total Bilirubin 1.0 AST 20 ALT 25 Alkaline Phosphatase 76 Total Protein 8.2 Albumin 4.0 Lipase 159 Urine Color Urine Clarity Urine pH Ur Specific [place] Urine Protein Urine Glucose (UA) Urine Ketones Urine Occult Blood Urine Nitrate Urine Bilirubin Urine Urobilinogen Ur Leukocyte Esterase Urine RBC Urine WBC Ur Squamous Epith Cells Micro UA Comment Ur Microscopic Review Urine Culture Comments - Imaging Impressions Abdomen/Pelvis CT 11/05/17 14:26 CONCLUSION: Free intraperitoneal air following EGD. Gastrografin swallow is pending. Chest CT 11/05/17 14:26 CONCLUSION: 1. Free mediastinal air and intraperitoneal air as described above following EGD. Upper GI/Barium Swallow X-Ray 11/05/17 15:41 CONCLUSION: Point of leak is not identified. Caprini VTE Risk Assessment Caprini VTE Risk Assessment: No/Low Risk (score <= 1) Caprini Risk Assessment Model: Point Value = 1 Point Value = 2 Point Value = 3 Point Value = 5 Age 41-60 Minor surgery BMI > 25 kg/m2 Swollen legs Varicose veins or History of unexplained or recurrent spontaneous Oral contraceptives or hormone replacement Sepsis (< 1 month) Serious lung disease, including pneumonia (< 1 month) Abnormal pulmonary function Acute myocardial infarction Congestive heart failure (< 1 month) History of inflammatory bowel disease Medical patient at bed rest Age 61-74 Arthroscopic surgery Major open surgery (> 45 min) Laparoscopic surgery (> 45 min) Malignancy Confined to bed (> 72 hours) Immobilizing plaster cast Central venous access Age >= 75 History of VTE Family history of VTE Factor V Leiden Prothrombin [id number] Lupus anticoagulant Anticardiolipin antibodies Elevated serum homocysteine Heparin-induced thrombocytopenia Other congenital or acquired thrombophilia Stroke (< 1 month) Elective arthroplasty Hip, pelvis, or leg fracture Acute spinal cord injury (< 1 month) Prophylaxis Regimen: Total Risk Factor Score Risk Level Prophylaxis Regimen 0-1 Low Early ambulation 2 Moderate Order ONE of the following: *Sequential Compression Device (SCD) *Heparin 5000 units SQ BID 3-4 Higher Order ONE of the following medications: *Heparin 5000 units SQ TID *Enoxaparin/Lovenox 40 mg SQ daily (WT < 150 kg, CrCl > 30 mL/min) *Enoxaparin/Lovenox 30 mg SQ daily (WT < 150 kg, CrCl > 10-29 mL/min) *Enoxaparin/Lovenox 30 mg SQ BID (WT < 150 kg, CrCl > 30 mL/min) AND/OR *Sequential Compression Device (SCD) 5 or more Highest Order ONE of the following medications: *Heparin 5000 units SQ TID (Preferred with Epidurals) *Enoxaparin/Lovenox 40 mg SQ daily (WT < 150 kg, CrCl > 30 mL/min) *Enoxaparin/Lovenox 30 mg SQ daily (WT < 150 kg, CrCl > 10-29 mL/min) *Enoxaparin/Lovenox 30 mg SQ BID (WT < 150 kg, CrCl > 30 mL/min) AND *Sequential Compression Device (SCD) Assessment and Plan - Plan 57-year-old female stenting with Abdominal pain- Free Intraperitoneal air S/P EGD procedure - History of Schatzki's ring status post dilatation in the past Barium swallow study shows no air leak GI service will be following. will defer need for repeat imaging study to them if needed Conservative management- bowel rest, IVF, antibotics GI and general surgery will be following along with us Keep n.p.o. Started on IV fluids Start on IV antibiotic ciprofloxacin plus Flagyl. Hypokalemia. IV fluids with potassium History of hypothyroidism continue Synthroid when allowed p.o. PPI for GI prophylaxis Bilateral SCds for DVT prophylaxis
[2017-11-05] MEDS ORDERED: Levofloxacin 500 mg Premix Inj 500 MG/100 ML PIGGYBACK IV.SIG SCH (19:00)
--- NOTE | 2017-11-05 19:15 | MB ---
cc: Fili Bean MD, Harry MD DATE: 11/05/2017 REASON FOR CONSULTATION: I was asked at request of the ER regarding dysphagia and free air on abdominal x-ray. HISTORY OF PRESENT ILLNESS: The patient is a pleasant 57-year-old white female, who was seen in our office for further evaluation of dysphagia. She has had previous esophageal dilatation and today an upper endoscopy was done, which revealed a severe and narrow Schatzki ring. There are also findings suggestive of eosinophilic esophagitis. Biopsies were taken throughout the esophagus. The stomach and duodenum unremarkable. The Schatzki ring was dilated with a 15-16.5 and then an 18-mm balloon dilator. The maximum was 18 mm. There was resolution of the new luminal narrowing. Postprocedure, the patient said when she woke up, she had right shoulder pain, neck pain, chest pain, and abdominal pain. It is ill-defined, it is all over. She was sent to a local radiology department and apparently there was free air noted. The patient was sent to the emergency room after here. General surgery has been consulted and an abdominal pelvis and CT scan have been ordered. Surgery had also ordered a Gastrografin swallow. At this time, she has received morphine, but she actually feels better. Still some abdominal discomfort, but better than it was before. No chest pain, no shortness of breath. Her right shoulder pain is still present. PAST MEDICAL HISTORY: Significant for a Schatzki ring, eosinophilic esophagitis, hypothyroidism, GERD, anemia. She has had colon polyps in the past. FAMILY HISTORY: Not significant for colon cancer or colon polyps. Father had some type of unknown cancer. PAST SURGICAL HISTORY: Includes a colonoscopy. She has had a partial hysterectomy. She has had a septorhinoplasty. SOCIAL HISTORY: Does not currently smoke. She drinks occasional alcohol. MEDICATIONS: As an outpatient are: 1. ProAir inhaler. 2. Levothyroxine. 3. Estrogen transderm gel. MEDICATIONS: As an inpatient include: 1. Cipro. 2. Flagyl. 3. Morphine. 4. Zofran. ALLERGIES: 1. LATEX. 2. PREDNISONE CAUSES HALLUCINATIONS. 3. PROCHLORPERAZINE CAUSES THROAT TO SWELL. 4. BROCCOLI. 5. SOY FIBER. 6. SESAME SEED OIL. 7. SESAME SEEDS. 8. LECITHIN. 9. SOY. 10. SOYBEAN. REVIEW OF SYSTEMS: CONSTITUTIONAL: No anginal chest pain, palpitations, wheezing, or shortness of breath. No weight loss, fever, or chills. GASTROINTESTINAL: Please see above. She has had episodes of heartburn, but nothing right now, obviously. No nausea or vomiting. No melena, hematochezia, diarrhea, or constipation. Unremarkable 12-point review of systems. PHYSICAL EXAMINATION: VITAL SIGNS: Blood pressure is 159/102, respiratory rate of 18, temperature is 97.5. GENERAL: She is a well-developed, well-nourished white female resting comfortably at this time, appears to be in no acute distress. HEENT: Pupils equal, round, reactive to light. No obvious scleral icterus. Oropharyngeal cavity has dental caries. No tongue deviation or Candidal lesions. Hearing was intact. NECK: Supple. No thyromegaly or adenopathy. There is no subcutaneous emphysema. LUNGS: Clear to auscultation. HEART: Regular rate and rhythm. No gross murmurs are heard. ABDOMEN: Soft, protuberant. I did not appreciate any major abdominal distention. It was minimal tenderness to deep palpation, but no rebound tenderness. No organomegaly or masses. No obvious ascites. EXTREMITIES: Had no cyanosis, clubbing, or edema. I did not assess her gait. NEUROLOGIC: Cranial nerves 2-12 grossly intact. No gross sensory deficits. SKIN: Warm and moist. She is alert and oriented x3. RECTAL: I did not do a rectal exam on her. LABORATORY DATA: Revealed white blood cells elevated at 13,600, hemoglobin 15.5 - elevated, hemoglobin of 14.6 - elevated, MCV of 92, platelet count 288,000. Protime 10.1, INR 1.1, PTT 27.8. Potassium slightly low at 3.4, sodium 143, BUN 12, creatinine 1.01. SGOT 20, SGPT 25, alkaline phosphatase 76, lipase 29 which is normal, total bilirubin 1.0 - normal. IMPRESSION: 1. Abdominal and chest pain - ill defined. This occurred after an upper endoscopy with esophageal dilatation. See below for further discussion. 2. Abnormal x-ray-free air was reported on abdominal x-ray. The patient and her , who I talked to over the phone, are aware that this could be a perforation of viscus, particularly of the lower esophagus. whether there is a perforation of another viscus is unclear. 3. Schatzki ring, status post dilatation today. RECOMMENDATIONS: 1. Continue Cipro and Flagyl, which were started by the ER doctors. 2. Awaiting general surgery evaluation, Dr. Coyne is aware. 3. Await imaging studies and a CT scan of abdomen, pelvis, and chest, and Gastrografin swallow. 4. I discussed in detail with the patient and the patient's that depending on the above imaging studies, options include surgery and repeat upper endoscopy with endoscopic clipping; although, the perforation has to be small in that regard. Other option is to do an upper endoscopy with stenting of the esophageal perforation. We did talk about the indications, risks, complications, benefits, limitations, history of bleeding, perforation, infection, arrhythmias, etc. 5. Further recommendations pending above testing. MD BRII Vega/garry/do , 04:02 PM , 04:21 PM MTDD
[2017-11-05] MEDS: Pantoprazole Inj 40 MG Vial IV.PUSH SCH (22:15)
[2017-11-06] MEDS: KCL 20 mEq/D5W/NaCl 0.9% Inj 1,000 ML IV.CONT SCH ×2 (06:19→21:25)
[2017-11-06] MEDS: Ciprofloxacin 400 MG/200 ML 400 MG/200 ML PIGGYBACK IV.SIG SCH ×2 (06:19→15:33)
--- NOTE | 2017-11-06 06:52 | MB ---
cc: Taz Coyne MD DATE: 11/05/2017 REASON FOR CONSULTATION: Esophageal perforation, abdominal pain. FACULTY DEAN: Dr. Yovanny Nieves. HISTORY OF PRESENT ILLNESS: The patient is a 57-year-old female who presents with a history of a Schatzki ring and esophageal stricture, status post EGD and dilation. The patient was noted to have endoscopy done around 9 a.m. and presented with acute onset of pain. She had a chest x-ray showing free intraperitoneal air; therefore, was transferred to the hospital for further workup and evaluation. She states she is feeling a significant amount of pain 8/10 from her chin down to her abdomen. She states the pain is somewhat diffuse and located in several areas such as right shoulder and epigastric area. She never had pain quite like this before. She states the pain is somewhat dull and pressure-like in sensation. She has some associated nausea. Denies vomiting. She further denies any fevers or chills and is otherwise hemodynamically stable. She had a further workup including labs with leukocytosis, WBC of 13, and CT chest showing mediastinal air and intraperitoneal air. She also had further workup with a swallow study showing no extravasation. PAST MEDICAL HISTORY: Schatzki ring, migraines, hypothyroidism, dysphagia. PAST SURGICAL HISTORY: Hysterectomy, EGD with dilation x 3. SOCIAL HISTORY: Denies smoking, ETOH, or IVDA. ALLERGIES: BROCCOLI, PREDNISONE, SOY FIBER, COMPAZINE, SESAME OIL, SESAME SEED. MEDICATIONS: See EMR. FAMILY HISTORY: Denies diabetes or hypertension. REVIEW OF SYSTEMS: GENERAL: Denies fever or chills. HEENT: Denies eye pain, ear pain. NECK: Complains of neck pain. CHEST: Complains of chest tightness. Denies shortness of breath. CARDIAC: Denies palpitation. ABDOMEN: Complains of abdominal pain, nausea. Denies vomiting. GENITOURINARY: Denies dysuria or hematuria. ENDOCRINE: Denies polyuria or polydipsia. INTEGUMENT: Denies any masses or lesions: PSYCHIATRIC: Denies change in mood and sensorium. PHYSICAL EXAMINATION: GENERAL: The patient in no acute distress. VITAL SIGNS: Temperature 97.5, pulse 94, respiration 18, blood pressure 159/102, saturation 100%. HEENT: Pupils equal, round, reactive. NECK: Supple. Trachea midline. LUNGS: Bilateral breath sounds are clear. No wheeze. ABDOMEN: Soft, mild tenderness to deep palpation in epigastric bilateral upper quadrants. No rebound, no guarding, no rigidity. EXTREMITIES: No edema. Warm and well perfused. NEUROLOGIC: GCS of 15. 5/5 in all extremities. PSYCHIATRIC: Appropriate mood, appropriate judgment. LABORATORY AND DIAGNOSTIC DATA: WBC 13.6, hemoglobin 15.5, hematocrit 46.6, platelets is 288. Sodium 143, potassium 3.4, chloride 105, CO2 was 29, BUN 12, creatinine 1. Lactate 2.2. AST 20, ALT 25, lipase 159. INR is 1.1. CT reviewed by myself showing anterior mediastinal air of chest. No pneumothorax, no effusion. CT abdomen: Free intraperitoneal air, moderate amount. Esophagram: No extravasation of contrast. ASSESSMENT: The patient is a 57-year-old female who presents status post recent esophagogastroduodenoscopy with dilation of Schatzki ring with concern for esophageal perforation. The patient is stable. PLAN: After full clinical and radiologic workup, the patient with above-mentioned issues. At this point, the patient does have signs of esophageal perforation; however, the patient does not appear septic and there is no evidence of contamination or free fluid, just free intraperitoneal air and further esophageal injury not recognized on esophagram study. At this point, plan I recommend for patient to be n.p.o., IV fluids, start TPN, IV antibiotics, pain control. The patient needs to be monitored closely for change in clinical signs or symptoms. Would recommend consideration for thoracic consultation and again close monitoring with following of laboratory values. At this point, I discussed with the patient regarding several options such as surgical intervention versus stent versus observation. At this point, given the patient's stability, I think it is prudent to undergo observation at this time. Discussed with primary and clinical staff.I spent 45 minutes reviewing document, labs, exam, and discussed clinical situation with patient. MD MARIBEL Gonzalez/marcial , 10:17 PM , 10:30 PM [facility]ITAL[facility]
--- NOTE | 2017-11-06 08:57 | P.PNGI ---
Subjective Interval history: Patient feeling quite well. No right shoulder pain. abdominal pain improved. she denies any nausea, vomiting, diarrhea or overt GI bleeding Physical Exam Vital signs: Vital Signs 11/05/17 12:32 11/05/17 16:24 11/05/17 21:04 Temperature 97.5 F L Pulse Rate 94 H 73 78 Respiratory Rate 18 16 18 Blood Pressure 159/102 H 148/77 H 136/78 Pulse Oximetry 100 98 98 11/05/17 21:50 11/06/17 00:00 11/06/17 04:00 Temperature 97.6 F 97.8 F 97.9 F Pulse Rate 69 70 72 Respiratory Rate 18 18 18 Blood Pressure 142/80 H 125/68 123/65 Pulse Oximetry 100 98 96 11/06/17 08:00 Temperature 98.4 F Pulse Rate 75 Respiratory Rate 16 Blood Pressure 131/71 Pulse Oximetry 97 Intake & Output 11/05/17 11/06/17 11/06/17 18:59 06:59 18:59 Intake Total 1300 / 1300 1100 / 1100 Balance 1300 / 1300 1100 / 1100 Weight 83.007 kg 80.4 kg Intake: IV 1300 / 1300 1100 / 1100 D5W/NS + KCL 20 mEq Inj 1,000 1000 / 1000 ML @ 84 mls/hr IV.CONT .[id number] [facility] Rx#:[id number] Cipro 400 MG/200 ML Inj 400 mg 200 / 200 In 200 ml @ 200 mls/hr IV.SIG ONCE ONE Rx#:[id number] Flagyl 500 MG Inj 100 ML @ 100 100 / 100 100 / 100 mls/hr IV.SIG Q8H [facility] Rx#: [id number] Other: # Voids 3 - Constitutional no acute distress - Routine HEENT Exam Head: Present: atraumatic Eye: Absent: scleral injection - Routine Neck Exam Present: supple - Routine Respiratory Exam Present: CTA bilaterally - Routine Cardiovascular Exam Present: RRR - Routine Abdominal Exam Present: soft, normoactive bowel sounds. Absent: tenderness, distended, rebound - Routine Skin Exam Absent: cyanosis - Routine Neurological Exam Present: alert, oriented X3 Results - Labs CBC & Chem 7: 11/05/17 13:50 11/05/17 13:50 Laboratory Results - last 24 hr 11/05/17 11/05/17 11/05/17 13:45 13:50 13:50 WBC 13.6 H RBC 5.06 Hgb 15.5 H Hct 46.6 H MCV 92.0 MCH 30.7 MCHC 33.3 RDW 13.8 Plt Count 288 MPV 8.0 Neut % (Auto) 81.0 H Lymph % (Auto) 12.5 [place] % (Auto) 5.4 Eos % (Auto) 0.9 Baso % (Auto) 0.2 Neut # (Auto) 11.0 H Lymph # (Auto) 1.7 [place] # (Auto) 0.7 Eos # (Auto) 0.1 Baso # (Auto) 0.0 WBC Differential . Differential Comment Auto diff final PT 10.7 INR 1.1 APTT 27.8 Sodium Potassium Chloride Carbon Dioxide Anion Gap BUN Creatinine Estimated GFR Random Glucose Lactic Acid Calcium Total Bilirubin AST ALT Alkaline Phosphatase Total Protein Albumin Lipase Urine Color Yellow Urine Clarity Clear Urine pH 6.0 Ur Specific [place] 1.013 Urine Protein Negative Urine Glucose (UA) Negative Urine Ketones Trace H Urine Occult Blood Negative Urine Nitrate Negative Urine Bilirubin Negative Urine Urobilinogen Less than 2 Ur Leukocyte Esterase Negative Urine RBC 1 Urine WBC Less than 1 Ur Squamous Epith Cells 1 Micro UA Comment Culture not ind Ur Microscopic Review Not Reportable Urine Culture Comments Culture not ind 11/05/17 11/05/17 13:50 13:50 WBC RBC Hgb Hct MCV MCH MCHC RDW Plt Count MPV Neut % (Auto) Lymph % (Auto) [place] % (Auto) Eos % (Auto) Baso % (Auto) Neut # (Auto) Lymph # (Auto) [place] # (Auto) Eos # (Auto) Baso # (Auto) WBC Differential Differential Comment PT INR APTT Sodium 143 Potassium 3.4 L Chloride 105 Carbon Dioxide 29.0 Anion Gap 9 BUN 12 Creatinine 1.01 H Estimated GFR 57 L Random Glucose 101 Lactic Acid 2.2 H Calcium 9.0 Total Bilirubin 1.0 AST 20 ALT 25 Alkaline Phosphatase 76 Total Protein 8.2 Albumin 4.0 Lipase 159 Urine Color Urine Clarity Urine pH Ur Specific [place] Urine Protein Urine Glucose (UA) Urine Ketones Urine Occult Blood Urine Nitrate Urine Bilirubin Urine Urobilinogen Ur Leukocyte Esterase Urine RBC Urine WBC Ur Squamous Epith Cells Micro UA Comment Ur Microscopic Review Urine Culture Comments - Imaging Impressions Abdomen/Pelvis CT 11/05/17 14:26 CONCLUSION: Free intraperitoneal air following EGD. Gastrografin swallow is pending. Chest CT 11/05/17 14:26 CONCLUSION: 1. Free mediastinal air and intraperitoneal air as described above following EGD. Upper GI/Barium Swallow X-Ray 11/05/17 15:41 CONCLUSION: Point of leak is not identified. Assessment and Plan - Plan Impression- 1. Abdominal and chest pain - ill defined. Much improved 2. Abnormal x-ray-free air was reported on abdominal x-ray. CT of the chest and abdomen confirmed free air. However Gastrografin swallow did not show any esophageal leak or perforation--suspect it has sealed itself off RECOMMENDATIONS: 1. Continue Cipro and Flagyl 2. Continue n.p.o. 3. Watch for signs and symptoms of intra-abdominal infection/abscess 4. Dr. Puentes see the patient tomorrow
[2017-11-06 09:12] LABS: Baso % (Auto) 0.3 % (0.0-2.0); Eos # (Auto) 0.2 th/mm3 (0.0-0.4); Eos % (Auto) 3.4 % (0.0-4.0); Hematocrit 45.5 % (35.0-46.0); Hemoglobin 14.9 gm/dL (11.6-15.3); Lymph # (Auto) 1.5 th/mm3 (1.0-4.8); Lymph % (Auto) 24.5 % (9.0-44.0); Mean Corpuscular HGB Conc 32.8 % (32.0-36.0); Mean Corpuscular Hemoglobin 30.7 pg (27.0-34.0); Mean Corpuscular Volume 93.4 fL (80.0-100.0); Mean Platelet Volume 8.4 fL (7.0-11.0); Mono # (Auto) 0.6 th/mm3 (0.0-0.9); Mono % (Auto) 9.4 % (0.0-8.0); Neut # (Auto) 3.8 th/mm3 (1.8-7.7); Neut % (Auto) 62.4 % (16.0-70.0); Platelet Count 271 th/mm3 (150-450); Red Blood Count 4.87 mil/mm3 (4.00-5.30); White Blood Count 6.1 th/mm3 (4.0-11.0)
[2017-11-06] MEDS: Morphine Inj 4 MG/ML Vial IV.PUSH PRN (09:23)
[2017-11-06 09:42] LABS: Calcium 8.8 mg/dL (8.5-10.1); Carbon Dioxide 26.1 meq/L (21.0-32.0); Potassium 3.4 meq/L (3.5-5.1)
--- NOTE | 2017-11-06 11:09 | P.PNGS ---
Subjective Patient reports: no new complaints, pain is less (wbc normalized, no fevers) Physical Exam Vital signs: Vital Signs 11/05/17 12:32 11/05/17 16:24 11/05/17 21:04 Temperature 97.5 F L Pulse Rate 94 H 73 78 Respiratory Rate 18 18 Blood Pressure 159/102 H 148/77 H 136/78 Pulse Oximetry 100 98 98 11/05/17 21:50 11/06/17 00:00 11/06/17 04:00 Temperature 97.6 F 97.8 F 97.9 F Pulse Rate 69 70 72 Respiratory Rate 18 18 Blood Pressure 142/80 H 125/68 123/65 Pulse Oximetry 100 98 96 11/06/17 08:00 Temperature 98.4 F Pulse Rate 75 Respiratory Rate 16 Blood Pressure 131/71 Pulse Oximetry 97 Intake & Output 11/05/17 11/06/17 11/06/17 18:59 06:59 18:59 Intake Total 1300 / 1300 1100 / 1100 300 / 300 Balance 1300 / 1300 1100 / 1100 300 / 300 Weight 83.007 kg 80.4 kg Intake: IV 1300 / 1300 1100 / 1100 300 / 300 D5W/NS + KCL 20 mEq Inj 1,000 1000 / 1000 ML @ 84 mls/hr IV.CONT .[id number] [facility] Rx#:[id number] Cipro 400 MG/200 ML Inj 400 mg 200 / 200 200 / 200 In 200 ml @ 200 mls/hr IV.SIG Q12H [facility] Rx#:[id number] Flagyl 500 MG Inj 100 ML @ 100 100 / 100 100 / 100 100 / 100 mls/hr IV.SIG Q8H [facility] Rx#: [id number] Other: # Voids 3 - Constitutional no acute distress - Routine Neck Exam Present: supple - Routine Respiratory Exam Present: CTA bilaterally - Routine Cardiovascular Exam Present: RRR - Routine Abdominal Exam Present: soft (mild epigastric tenerness) Assessment and Plan - Plan esophageal perf s/p dilation of schticks ring, pt stable, afebrile, wbc normal PLAN npo tpn, ivf abx pain control cxr in am abdominal exams, non operative tx at this time.
--- NOTE | 2017-11-06 14:11 | P.PN ---
Subjective Interval history: Follow-up of patient with esophageal rupture. Patient seen and examined. Patient is very anxious. She is complaining of migraine headache with photophobia. She is declining benzodiazepines. She is also declining subcu Imitrex because she does not like the way it makes her feel. She denies any fever chills. She does report nausea but denies any vomiting. She states abdominal pain is improved. Physical Exam Vital signs: Vital Signs 11/05/17 16:24 11/05/17 21:04 11/05/17 21:50 Temperature 97.6 F Pulse Rate 73 78 69 Respiratory Rate 16 18 18 Blood Pressure 148/77 H 136/78 142/80 H Pulse Oximetry 98 98 100 11/06/17 00:00 11/06/17 04:00 11/06/17 08:00 Temperature 97.8 F 97.9 F 98.4 F Pulse Rate 70 72 75 Respiratory Rate 18 18 16 Blood Pressure 125/68 123/65 131/71 Pulse Oximetry 98 96 97 11/06/17 12:00 Temperature 97.3 F L Pulse Rate 75 Respiratory Rate 16 Blood Pressure 124/82 Pulse Oximetry 100 Intake & Output 11/05/17 11/06/17 11/06/17 18:59 06:59 18:59 Intake Total 1300 / 1300 1100 / 1100 300 / 300 Balance 1300 / 1300 1100 / 1100 300 / 300 Weight 83.007 kg 80.4 kg Intake: IV 1300 / 1300 1100 / 1100 300 / 300 D5W/NS + KCL 20 mEq Inj 1,000 1000 / 1000 ML @ 84 mls/hr IV.CONT .[id number] [facility] Rx#:[id number] Cipro 400 MG/200 ML Inj 400 mg 200 / 200 200 / 200 In 200 ml @ 200 mls/hr IV.SIG Q12H [facility] Rx#:[id number] Flagyl 500 MG Inj 100 ML @ 100 100 / 100 100 / 100 100 / 100 mls/hr IV.SIG Q8H [facility] Rx#: [id number] Other: # Voids 3 Narrative: GENERAL: WDWN female, seated on side of bed. Anxious appearing. Awake and alert. SKIN: Warm and dry. No generalized rash. HEENT: Atraumatic. Normocephalic. Pupils equal and round. No scleral icterus. No injection or drainage. ENT: No nasal bleeding or discharge. Mucous membranes pink and moist. NECK: Trachea midline. CARDIOVASCULAR: Regular rate and rhythm. RESPIRATORY: No accessory muscle use. Clear to auscultation. Breath sounds equal bilaterally. GASTROINTESTINAL: Abdomen soft, non-tender, nondistended. MUSCULOSKELETAL: Extremities without clubbing, cyanosis, or edema. No obvious deformities. NEUROLOGICAL: Awake and alert. No obvious cranial nerve deficits. Motor grossly within normal limits. Able to move all extremities spontaneously. Nonfocal. Normal speech. PSYCHIATRIC: Anxious mood. Depressed affect; insight and judgment normal. Results - Labs CBC & Chem 7: 11/06/17 08:17 11/06/17 08:17 Laboratory Results - last 24 hr 11/05/17 11/05/17 11/05/17 13:45 13:50 13:50 WBC 13.6 H RBC 5.06 Hgb 15.5 H Hct 46.6 H MCV 92.0 MCH 30.7 MCHC 33.3 RDW 13.8 Plt Count 288 MPV 8.0 Neut % (Auto) 81.0 H Lymph % (Auto) 12.5 [place] % (Auto) 5.4 Eos % (Auto) 0.9 Baso % (Auto) 0.2 Neut # (Auto) 11.0 H Lymph # (Auto) 1.7 [place] # (Auto) 0.7 Eos # (Auto) 0.1 Baso # (Auto) 0.0 WBC Differential . Differential Comment Auto diff final PT 10.7 INR 1.1 APTT 27.8 Sodium Potassium Chloride Carbon Dioxide Anion Gap BUN Creatinine Estimated GFR Random Glucose Lactic Acid Calcium Total Bilirubin AST ALT Alkaline Phosphatase Total Protein Albumin Lipase Urine Color Yellow Urine Clarity Clear Urine pH 6.0 Ur Specific Show Low 1.013 Urine Protein Negative Urine Glucose (UA) Negative Urine Ketones Trace H Urine Occult Blood Negative Urine Nitrate Negative Urine Bilirubin Negative Urine Urobilinogen Less than 2 Ur Leukocyte Esterase Negative Urine RBC 1 Urine WBC Less than 1 Ur Squamous Epith Cells 1 Micro UA Comment Culture not ind Ur Microscopic Review Not Reportable Urine Culture Comments Culture not ind 11/05/17 11/05/17 11/06/17 13:50 13:50 08:17 WBC 6.1 D RBC 4.87 Hgb 14.9 Hct 45.5 MCV 93.4 MCH 30.7 MCHC 32.8 RDW 14.0 Plt Count 271 MPV 8.4 Neut % (Auto) 62.4 Lymph % (Auto) 24.5 [place] % (Auto) 9.4 H Eos % (Auto) 3.4 Baso % (Auto) 0.3 Neut # (Auto) 3.8 Lymph # (Auto) 1.5 [place] # (Auto) 0.6 Eos # (Auto) 0.2 Baso # (Auto) 0.0 WBC Differential . Differential Comment Auto diff final PT INR APTT Sodium 143 Potassium 3.4 L Chloride 105 Carbon Dioxide 29.0 Anion Gap 9 BUN 12 Creatinine 1.01 H Estimated GFR 57 L Random Glucose 101 Lactic Acid 2.2 H Calcium 9.0 Total Bilirubin 1.0 AST 20 ALT 25 Alkaline Phosphatase 76 Total Protein 8.2 Albumin 4.0 Lipase 159 Urine Color Urine Clarity Urine pH Ur Specific Show Low Urine Protein Urine Glucose (UA) Urine Ketones Urine Occult Blood Urine Nitrate Urine Bilirubin Urine Urobilinogen Ur Leukocyte Esterase Urine RBC Urine WBC Ur Squamous Epith Cells Micro UA Comment Ur Microscopic Review Urine Culture Comments 11/06/17 08:17 WBC RBC Hgb Hct MCV MCH MCHC RDW Plt Count MPV Neut % (Auto) Lymph % (Auto) [place] % (Auto) Eos % (Auto) Baso % (Auto) Neut # (Auto) Lymph # (Auto) [place] # (Auto) Eos # (Auto) Baso # (Auto) WBC Differential Differential Comment PT INR APTT Sodium 143 Potassium 3.4 L Chloride 108 H Carbon Dioxide 26.1 Anion Gap 9 BUN 9 Creatinine 1.12 H Estimated GFR 51 L Random Glucose 98 Lactic Acid Calcium 8.8 Total Bilirubin AST ALT Alkaline Phosphatase Total Protein Albumin Lipase Urine Color Urine Clarity Urine pH Ur Specific Show Low Urine Protein Urine Glucose (UA) Urine Ketones Urine Occult Blood Urine Nitrate Urine Bilirubin Urine Urobilinogen Ur Leukocyte Esterase Urine RBC Urine WBC Ur Squamous Epith Cells Micro UA Comment Ur Microscopic Review Urine Culture Comments - Imaging Impressions Abdomen/Pelvis CT 11/05/17 14:26 CONCLUSION: Free intraperitoneal air following EGD. Gastrografin swallow is pending. Chest CT 11/05/17 14:26 CONCLUSION: 1. Free mediastinal air and intraperitoneal air as described above following EGD. Upper GI/Barium Swallow X-Ray 11/05/17 15:41 CONCLUSION: Point of leak is not identified. Assessment and Plan - Plan 57-year-old female with esophageal perforation s/p EGD Abdominal pain Free Intraperitoneal air s/p EGD procedure History of Schatzki's ring status post dilatation in the past Barium swallow study shows no air leak GS following, appreciate assistance. Nonsurgical management at this time. GI service following, appreciate assistance Conservative management- bowel rest, IVF, antibiotics Keep n.p.o. Food Vendor consulted for TPN ordered. Vascular access team for midline/PICC line placement. Started on IV fluids, continue Continue on IV antibiotic ciprofloxacin plus Flagyl Hypokalemia Continue with IV fluids with potassium obtain mag level SHIRLEY creatinine trending up continue on IVF, increase rate obtain renal US avoid nephrotoxic agents continue to monitor kidney function closely, especially in light of IV Cipro Acute on chronic migraines Offered subq Imitrex but patient declined IV morphine prn Anxiety IV Ativan low dose prn History of hypothyroidism obtain TSH level will begin on IV levothyroxine PPI for GI prophylaxis Bilateral SCDs for DVT prophylaxis Discussed Condition With: patient, on phone, nursing staff, Dr. Uribe Discharge Planning: Not ready for discharge
[2017-11-06 15:48] LABS: Magnesium 2.2 mg/dL (1.5-2.5)
[2017-11-06 15:56] LABS: Thyroid Stimulating Hormone 1.99 uIU/mL (0.358-3.740)
--- NOTE | 2017-11-06 16:04 | P.DIET ---
Nutritional Evaluation Type of nutrition evaluation: [place] [facility] [place] Objective - Diagnosis Esophageal Perforation - Objective % IBW: 131 (IBW = 135#) Body Weight Used for Calculations: IBW (61.4 kg) Energy Needs - Lower Range (kCal/kg): 25 Energy Needs - Upper Range (kCal/kg): 30 Lower Limit kCal/kg (kCals): 1,535 Upper Limit kCal/kg (kCals): 1,842 Lower Limit Protein Factor (Grams per Kg): 1.0 Upper Limit Protein Factor (Grams per Kg): 1.5 Lower Protein Needs (Protein): 61 Upper Protein Needs (Protein): 92 Fluid Factor (ml/kg): 30 Estimated Fluid Needs (ml): 1,842 Dietitian Reviewed in Medical Record: Curent medications, Intake & Output, Labs , Medical history Diet Order: NPO Assessment Assessment: Pt with esophageal perforation s/p dilation of Schatzki's ring and remains npo. To meet nutritional needs with TPN, recommend Clinimix E 5/20 @ 60 mls/hr with 20% lipids @ 10 mls/hr to provide a total of 1747 kcals and 72 gms protein. Request weekly TG while on TPN/lipids. Recommendations: TPN: Clinimix E 5/20 @ 60 mls/hr LIPIDS: 20% lipids @ 10 mls/hr Dietitian to Monitor: Lab values, Intake & Output, TPN/PPN tolerance, Weight change, Diet advancement, Swallow recommendations, Medical course
--- NOTE | 2017-11-06 18:03 | US ---
EXAM DATE: 11/06/2017 5:57 PM EDT AGE/SEX: 57 years / Female INDICATIONS: Increased Bun and Creatinine. CLINICAL DATA: This is the patient's subsequent encounter. Patient reports that signs and symptoms h ave been present for 1 day and indicates a pain score of 2/10. MEDICAL/SURGICAL HISTORY: . Hypothyroid. Hysterectomy. [place]oscopy. [place] [facility] [place]/2017. . MEASUREMENTS: Right Kidney:__10.7 x 4.5 x 4.7 cm Left Kidney:__10.6 x 4.8 x 5.0 cm FINDINGS: Right Kidney: Normal echotexture and cortical thickness. No mass or hydronephrosis. Small bubbles of free air are seen in between the upper pole and liver. Left Kidney: Normal echotexture and cortical thickness. No mass or hydronephrosis. Bladder: Within normal limits given the degree of distension. Other: None. CONCLUSION: Ultrasound appearance of the kidneys and urinary bladder within normal limits. Free intra peritoneal air again noted. Electronically signed by: Ronal Kee MD 11/06/2017 6:01 PM EDT
[2017-11-06 18:48] LABS: Creatinine,Urine Random 82 mg/dL (27-300)
[2017-11-06] MEDS: Pantoprazole Inj 40 MG Vial IV.PUSH SCH (20:21)
[2017-11-07] MEDS: KCL 20 mEq/D5W/NaCl 0.9% Inj 1,000 ML IV.CONT SCH ×4 (01:08→17:52)
[2017-11-07] MEDS: Ciprofloxacin 400 MG/200 ML 400 MG/200 ML PIGGYBACK IV.SIG SCH ×2 (04:14→15:37)
--- NOTE | 2017-11-07 07:56 | P.PN ---
Subjective Interval history: Follow-up of patient with esophageal perforation. Patient seen and examined. Patient is doing better. Nausea controlled with Zofran. No further episodes of emesis. Patient denies any new medical complaints. No fever of chills. No chest pain. No abdominal pain. Physical Exam Vital signs: Vital Signs 11/06/17 08:00 11/06/17 12:00 11/06/17 16:00 Temperature 98.4 F 97.3 F L 97.3 F L Pulse Rate 75 75 98 H Respiratory Rate 18 Blood Pressure 131/71 124/82 146/89 H Pulse Oximetry 97 100 100 11/06/17 20:00 11/07/17 00:00 11/07/17 04:00 Temperature 97.8 F 97.9 F 98.3 F Pulse Rate 71 77 86 Respiratory Rate 18 Blood Pressure 164/84 H 160/80 H 129/83 Pulse Oximetry 100 99 96 Intake & Output 11/06/17 11/07/17 11/07/17 18:59 06:59 18:59 Intake Total 1600 / 1600 1300 / 1300 100 / 100 Balance 1600 / 1600 1300 / 1300 100 / 100 Weight 78.6 kg Intake: IV 1600 / 1600 1300 / 1300 100 / 100 D5W/NS + KCL 20 mEq Inj 1,000 1000 / 1000 1000 / 1000 ML @ 125 mls/hr IV.CONT .Q8H [facility] Rx#:[id number] Cipro 400 MG/200 ML Inj 400 mg 400 / 400 200 / 200 In 200 ml @ 200 mls/hr IV.SIG Q12H [facility] Rx#:[id number] Flagyl 500 MG Inj 100 ML @ 100 200 / 200 100 / 100 100 / 100 mls/hr IV.SIG Q8H [facility] Rx#: [id number] Other: # Voids 3 2 Narrative: GENERAL: WDWN female, SKIN: Warm and dry. No generalized rash. HEENT: Atraumatic. Normocephalic. Pupils equal and round. No scleral icterus. No injection or drainage. ENT: No nasal bleeding or discharge. Mucous membranes pink and moist. NECK: Trachea midline. CARDIOVASCULAR: Regular rate and rhythm. RESPIRATORY: No accessory muscle use. Clear to auscultation. Breath sounds equal bilaterally. GASTROINTESTINAL: Abdomen soft, non-tender, nondistended. MUSCULOSKELETAL: Extremities without clubbing, cyanosis, or edema. No obvious deformities. NEUROLOGICAL: Awake and alert. No obvious cranial nerve deficits. Motor grossly within normal limits. Able to move all extremities spontaneously. Nonfocal. Normal speech. PSYCHIATRIC: Anxious mood. Depressed affect; insight and judgment normal. Results - Labs CBC & Chem 7: 11/06/17 08:17 0918 07:14 Laboratory Results - last 24 hr 11/06/17 11/06/17 11/06/17 08:17 08:17 08:17 WBC 6.1 D RBC 4.87 Hgb 14.9 Hct 45.5 MCV 93.4 MCH 30.7 MCHC 32.8 RDW 14.0 Plt Count 271 MPV 8.4 Neut % (Auto) 62.4 Lymph % (Auto) 24.5 [place] % (Auto) 9.4 H Eos % (Auto) 3.4 Baso % (Auto) 0.3 Neut # (Auto) 3.8 Lymph # (Auto) 1.5 [place] # (Auto) 0.6 Eos # (Auto) 0.2 Baso # (Auto) 0.0 WBC Differential . Differential Comment Auto diff final Sodium 143 Potassium 3.4 L Chloride 108 H Carbon Dioxide 26.1 Anion Gap 9 BUN 9 Creatinine 1.12 H Estimated GFR 51 L Random Glucose 98 Calcium 8.8 Magnesium Cancelled TSH Urine Eosinophils Ur Random Creatinine Ur Random Sodium 11/06/17 11/06/17 11/06/17 08:17 18:14 18:14 WBC RBC Hgb Hct MCV MCH MCHC RDW Plt Count MPV Neut % (Auto) Lymph % (Auto) [place] % (Auto) Eos % (Auto) Baso % (Auto) Neut # (Auto) Lymph # (Auto) [place] # (Auto) Eos # (Auto) Baso # (Auto) WBC Differential Differential Comment Sodium Potassium Chloride Carbon Dioxide Anion Gap BUN Creatinine Estimated GFR Random Glucose Calcium Magnesium 2.2 TSH 1.990 Urine Eosinophils None seen Ur Random Creatinine 82 Ur Random Sodium 263 - Imaging Impressions Abdomen/Bladder Ultrasound 11/06/17 00:00 CONCLUSION: Ultrasound appearance of the kidneys and urinary bladder within normal limits. Free intraperitoneal air again noted. Assessment and Plan - Plan 57-year-old female with esophageal perforation s/p EGD Esophageal perforation Free Intraperitoneal air s/p EGD procedure History of Schatzki's ring status post dilatation in the past Barium swallow study shows no air leak GS following, appreciate assistance. Nonsurgical management at this time. GI service following, appreciate assistance Conservative management- bowel rest, IVF, antibiotics Keep n.p.o. PICC line placed. To begin TPN today. Continue on IV antibiotic ciprofloxacin plus Flagyl Hypokalemia Mag 2.2 Continue with IV fluids with potassium IV bolus ordered monitor K level SHIRLEY creatinine improved Renal US neg avoid nephrotoxic agents continue to monitor kidney function closely, especially in light of IV Cipro Repeat BMP in am Acute on chronic migraines Offered subq Imitrex but patient declined IV morphine prn Anxiety IV Ativan low dose prn History of hypothyroidism TSH WNL Continue on IV levothyroxine PPI for GI prophylaxis Bilateral SCDs for DVT prophylaxis Code Status: FULL Discussed Condition With: patient, nursing staff, Dr. Uribe Discharge Planning: Not ready for discharge. Discharge pending GI and GS clearance.
[2017-11-07 08:46] LABS: Calcium 8.8 mg/dL (8.5-10.1); Carbon Dioxide 25.1 meq/L (21.0-32.0); Potassium 3.4 meq/L (3.5-5.1)
--- NOTE | 2017-11-07 09:56 | P.PNGI ---
Subjective Interval history: Patient sitting in chair using lap top. She states had a lot of nausea yesterday but feels much better today. No nausea or pain. No SOB. Physical Exam Vital signs: Vital Signs 11/06/17 12:00 11/06/17 16:00 11/06/17 20:00 Temperature 97.3 F L 97.3 F L 97.8 F Pulse Rate 75 98 H 71 Respiratory Rate 16 18 18 Blood Pressure 124/82 146/89 H 164/84 H Pulse Oximetry 100 100 100 11/07/17 00:00 11/07/17 04:00 Temperature 97.9 F 98.3 F Pulse Rate 77 86 Respiratory Rate 18 18 Blood Pressure 160/80 H 129/83 Pulse Oximetry 99 96 Intake & Output 11/06/17 11/07/17 11/07/17 18:59 06:59 18:59 Intake Total 1600 / 1600 1300 / 1300 100 / 100 Balance 1600 / 1600 1300 / 1300 100 / 100 Weight 78.6 kg Intake: IV 1600 / 1600 1300 / 1300 100 / 100 D5W/NS + KCL 20 mEq Inj 1,000 1000 / 1000 1000 / 1000 ML @ 125 mls/hr IV.CONT .Q8H [facility] Rx#:[id number] Cipro 400 MG/200 ML Inj 400 mg 400 / 400 200 / 200 In 200 ml @ 200 mls/hr IV.SIG Q12H [facility] Rx#:[id number] Flagyl 500 MG Inj 100 ML @ 100 200 / 200 100 / 100 100 / 100 mls/hr IV.SIG Q8H [facility] Rx#: [id number] Other: # Voids 3 2 Narrative: VSS, Afebrile sclera anicteric neck supple without crepitance lungs cleat to auscultation abd soft and nontender. No significant distention skin warm and dry Alert and Ox3 Results - Labs CBC & Chem 7: 11/06/17 08:17 11/07/17 07:14 Laboratory Results - last 24 hr 11/06/17 11/06/17 11/06/17 08:17 08:17 18:14 Sodium Potassium Chloride Carbon Dioxide Anion Gap BUN Creatinine Estimated GFR Random Glucose Calcium Magnesium Cancelled 2.2 TSH 1.990 Urine Eosinophils Ur Random Creatinine 82 Ur Random Sodium 263 11/06/17 11/07/17 18:14 07:14 Sodium 144 Potassium 3.4 L Chloride 108 H Carbon Dioxide 25.1 Anion Gap 11 BUN 5 L Creatinine 0.85 Estimated GFR 69 L Random Glucose 92 Calcium 8.8 Magnesium TSH Urine Eosinophils None seen Ur Random Creatinine Ur Random Sodium - Imaging Impressions Abdomen/Bladder Ultrasound 11/06/17 00:00 CONCLUSION: Ultrasound appearance of the kidneys and urinary bladder within normal limits. Free intraperitoneal air again noted. Assessment and Plan (1) Esophageal perforation Status: Acute Code(s): K22.3 - Perforation of esophagus - Plan Pt to get PICC line today and start TPN. Continue antibiotics. Clinically she is doing well. Will discuss with Dr Coyne overall plan.
--- NOTE | 2017-11-07 12:26 | XR ---
EXAM DATE: 11/07/2017 12:07 PM EDT AGE/SEX: 57 years / Female INDICATIONS: Evaluate picc line placement. CLINICAL DATA: This is the patient's subsequent encounter. Patient reports that signs and symptoms h ave been present for 2 days and indicates a pain score of 0/10. MEDICAL/SURGICAL HISTORY: . Hypothyroid. Hysterectomy. . Endoscopy COMPARISON: [facility] [place], [place] CHEST W CONTRAST, 11/05/2017. . FINDINGS: There is free air beneath the diaphragm. A right-sided PICC line is noted and the tip terminates at t he expected location of the SVC. Heart size normal. I do not see a pneumothorax. Osseous structures a re intact. CONCLUSION: Free intraperitoneal air. PICC line as above. Electronically signed by: Derek Ford MD 11/07/2017 12:25 PM EDT
[2017-11-07] MEDS ORDERED: Heparin Central Flush 100 UNIT/ML 5 ML Vial IV.FLUSH PRN (12:42)
[2017-11-07] MEDS: Morphine Inj 4 MG/ML Vial IV.PUSH PRN (15:32)
[2017-11-07] MEDS: Potassium Chlor 10 mEq Premix 10 MEQ/100 ML PIGGYBACK IV.SIG SCH ×3 (15:33→17:52)
[2017-11-07] MEDS: Multivitamin Inj 10 ML, Folic Acid Inj 1 MG in TPN Fluid 2 Liter 2,000 ML IV.SIG SCH (20:05)
[2017-11-07] MEDS: Pantoprazole Inj 40 MG Vial IV.PUSH SCH (20:07)
--- NOTE | 2017-11-07 23:36 | P.PNGS ---
Subjective Patient reports: nausea (nausea yesterday with vomiting x1, feels better today) Physical Exam Vital signs: Vital Signs 11/07/17 00:00 11/07/17 04:00 11/07/17 08:00 Temperature 97.9 F 98.3 F 97.4 F L Pulse Rate 77 86 92 H Respiratory Rate 18 18 18 Blood Pressure 160/80 H 129/83 122/79 Pulse Oximetry 99 96 95 11/07/17 16:00 Temperature 97.6 F Pulse Rate 91 H Respiratory Rate 17 Blood Pressure 144/76 H Pulse Oximetry 100 Intake & Output 11/07/17 11/07/17 11/08/17 06:59 18:59 06:59 Intake Total 1300 / 1300 1600 / 1600 100 / 100 Balance 1300 / 1300 1600 / 1600 100 / 100 Weight 78.6 kg Intake: IV 1300 / 1300 1600 / 1600 100 / 100 D5W/NS + KCL 20 mEq Inj 1,000 1000 / 1000 1000 / 1000 ML @ 50 mls/hr IV.CONT .Q20H [facility] Rx#:[id number] Cipro 400 MG/200 ML Inj 400 mg 200 / 200 200 / 200 In 200 ml @ 200 mls/hr IV.SIG Q12H [facility] Rx#:[id number] KCl 10 mEq Premix Inj 10 meq In 200 / 200 100 / 100 100 ml @ 100 mls/hr IV.SIG Q1H [facility] Rx#:[id number] Flagyl 500 MG Inj 100 ML @ 100 100 / 100 200 / 200 mls/hr IV.SIG Q8H [facility] Rx#: [id number] Oral 0 / 0 Other: # Voids 2 5 Date of Last Bowel Movement 11/07/17 # Bowel Movements 2 - Constitutional no acute distress - Routine Respiratory Exam Present: CTA bilaterally - Routine Cardiovascular Exam Present: RRR - Routine Abdominal Exam Present: soft (NT/ND) Assessment and Plan - Plan esophageal perf s/p dilation of schticks ring, pt stable, afebrile, wbc normal PLAN npo tpn, ivf abx pain control abdominal exams, non operative tx at this time. hhc for home tpn
[2017-11-08] MEDS: Ciprofloxacin 400 MG/200 ML 400 MG/200 ML PIGGYBACK IV.SIG SCH (04:39)
[2017-11-08 05:31] LABS: Calcium 8.5 mg/dL (8.5-10.1); Carbon Dioxide 27.6 meq/L (21.0-32.0); Potassium 3.8 meq/L (3.5-5.1)
[2017-11-08] MEDS ORDERED: Acetaminophen Inj 650 MG/65 ML VIAL IV.SIG ONE (05:58)
[2017-11-08] MEDS ORDERED: Acetaminophen 325 MG Tablet PO PRN (06:00)
--- NOTE | 2017-11-08 07:46 | P.DCO ---
- Home Health Nursing Order: Medical education, Signs/symptoms of disease process, Medication education-adverse effect, Nursing assessment with vital signs, IV medication administration - Certification I have seen patient Gissel Weeks on 11/08/17. My clinical findings support the need for the requested home health care services because: Deconditioned with increased weakness, Limited ability to care for self, Injectable medication education/administration I certify that my clinical findings support that this patient is homebound because: Post-op weakness, Unable to use public transportation
--- NOTE | 2017-11-08 07:47 | P.PN ---
Subjective Interval history: Patient stable. She denies any acute medical complaints. She denies any fever or chills. She denies any chest pain or shortness of breath. She denies any nausea, vomiting or abdominal pain. Physical Exam Vital signs: Vital Signs 11/07/17 08:00 11/07/17 16:00 Temperature 97.4 F L 97.6 F Pulse Rate 92 H 91 H Respiratory Rate 18 17 Blood Pressure 122/79 144/76 H Pulse Oximetry 95 100 Intake & Output 11/07/17 11/08/17 11/08/17 18:59 06:59 18:59 Intake Total 1600 / 1600 465 / 465 846 / 846 Output Total 600 / 600 Balance 1600 / 1600 -135 / -135 846 / 846 Weight 78.5 kg Intake: IV 1600 / 1600 465 / 465 846 / 846 D5W/NS + KCL 20 mEq Inj 1,000 1000 / 1000 ML @ 50 mls/hr IV.CONT .Q20H [facility] Rx#:[id number] Ofirmev Inj 650 mg In 65 ml @ 65 / 65 400 mls/hr IV.SIG ONCE ONE Rx#: [id number] Cipro 400 MG/200 ML Inj 400 mg 200 / 200 200 / 200 In 200 ml @ 200 mls/hr IV.SIG Q12H [facility] Rx#:[id number] Intralipid 20% Inj 250 ML @ 10 97 / 97 mls/hr IV.SIG Q24H [facility] Rx#: [id number] MVI-12 Inj 10 ML Folvite Inj 1 649 / 649 MG In TPN Fluid 2 Liter 2,000 ML @ 60 mls/hr IV.SIG DAILY@ 2000 [facility] Rx#:[id number] KCl 10 mEq Premix Inj 10 meq In 200 / 200 100 / 100 100 ml @ 100 mls/hr IV.SIG Q1H [facility] Rx#:[id number] Flagyl 500 MG Inj 100 ML @ 100 200 / 200 100 / 100 100 / 100 mls/hr IV.SIG Q8H [facility] Rx#: [id number] Oral 0 / 0 Output: Urine 600 / 600 Other: # Voids 5 1 Date of Last Bowel Movement 11/07/17 # Bowel Movements 2 Narrative: GENERAL: WDWN female, INAD. Awake and alert. SKIN: Warm and dry. No generalized rash. HEENT: Atraumatic. Normocephalic. Pupils equal and round. No scleral icterus. No injection or drainage. ENT: No nasal bleeding or discharge. Mucous membranes pink and moist. NECK: Trachea midline. CARDIOVASCULAR: Regular rate and rhythm. RESPIRATORY: No accessory muscle use. Clear to auscultation. Breath sounds equal bilaterally. GASTROINTESTINAL: Abdomen soft, non-tender, nondistended. MUSCULOSKELETAL: Extremities without clubbing, cyanosis, or edema. No obvious deformities. NEUROLOGICAL: Awake and alert. No obvious cranial nerve deficits. Motor grossly within normal limits. Able to move all extremities spontaneously. Nonfocal. Normal speech. PSYCHIATRIC: Anxious mood. Depressed affect; insight and judgment normal. Results - Labs CBC & Chem 7: 11/09/17 06:30 11/09/17 06:30 Laboratory Results - last 24 hr 11/07/17 11/08/17 11/08/17 07:14 04:50 06:39 Sodium 144 142 Potassium 3.4 L 3.8 Chloride 108 H 107 Carbon Dioxide 25.1 27.6 Anion Gap 11 7 BUN 5 L 9 Creatinine 0.85 0.89 Estimated GFR 69 L 66 L POC Glucose 100 Random Glucose 92 98 Calcium 8.8 8.5 - Imaging Impressions Chest X-Ray 11/07/17 11:48 CONCLUSION: Free intraperitoneal air. PICC line as above. Assessment and Plan - Assessment (1) On total parenteral nutrition (TPN) Code(s): Z78.9 - Other specified health status Status: Acute (2) Esophageal perforation Code(s): K22.3 - Perforation of esophagus Status: Acute (3) Hx of endoscopy Code(s): Z98.890 - Other specified postprocedural states Status: Acute - Plan 57-year-old female with esophageal perforation s/p EGD Esophageal perforation Free Intraperitoneal air s/p EGD procedure History of Schatzki's ring status post dilatation in the past Barium swallow study shows no air leak GS following, appreciate assistance. Nonsurgical management at this time. GI service following, appreciate assistance Conservative management- bowel rest, IVF, antibiotics Keep n.p.o. PICC line placed. On TPN. Hypokalemia Mag 2.2 resolved s/p IV repletion SHIRLEY, resolved creatinine improved Renal US neg avoid nephrotoxic agents Acute on chronic migraines Offered subq Imitrex but patient declined IV morphine prn Anxiety IV Ativan low dose prn History of hypothyroidism TSH WNL Continue on IV levothyroxine PPI for GI prophylaxis Bilateral SCDs for DVT prophylaxis Discussed Condition With: patient, nursing staff, Dr. Uribe Discharge Planning: Not ready for discharge. Discharge pending GI and GS clearance.
[2017-11-08] MEDS: Heparin Central Flush 100 UNIT/ML 5 ML Vial IV.FLUSH SCH (09:25)
--- NOTE | 2017-11-08 09:33 | P.DS ---
Date of admission: 11/05/17 16:48 Primary care physician: Segundo Hunt DO Attending physician on discharge: Gwen Uribe Anticipated date of discharge: 11/08/17 Brief History from admission: Patient is a very pleasant 57-year-old female history of hypothyroidism who had an EGD done this morning because of difficulty swallowing recently. Patient denies any weight loss. Right after procedure patient suddenly experienced severe pain from lower abdomen going up to the neck area. She describes like a feeling of huge amount of gas in the stomach to the chest wall. A CT of the abdomen was promptly done which showed positive free intraperitoneal air. Patient feels nauseous but no vomiting. Denies any fever or chills. When asked for the indication for the EGD patient states that she had had this done twice before. Had hiatal hernia in 2012 and was placed on PPI then and was weaned off. Was doing well until 2014 when patient started having difficulty swallowing. An EGD done then showed Schatzki's ring and dilatation was performed. Recurrence of symptoms prompted consult for repeat EGD With increasing difficulty swallowing patient lately states she had to really cut up the food into small pieces to be able to eat them. pateint admitted for further observation and evaluation Patient update on day of discharge: Patient stable. She denies any acute medical complaints. She denies any fever or chills. She denies any chest pain or shortness of breath. She denies any nausea, vomiting or abdominal pain. DS: Diagnosis - Discharge Diagnosis (1) On total parenteral nutrition (TPN) Status: Acute (2) Esophageal perforation Status: Acute (3) Hx of endoscopy Status: Acute DS: Medications - Discharge Medications Prescriptions: ondansetron [Zofran ODT] 4 mg PO Q6-8H PRN #20 tab PRN Reason: Nausea And Vomiting DS: Summary Hospital Course: 57-year-old female with esophageal perforation s/p EGD. Esophageal perforation Free Intraperitoneal air s/p EGD procedure History of Schatzki's ring status post dilatation in the past Barium swallow study shows no air leak GS following, appreciate assistance. Nonsurgical management at this time. GI service following, appreciate assistance Conservative management- bowel rest, IVF, antibiotics Keep n.p.o. PICC line placed, on TPN Hypokalemia Mag 2.2 resolved s/p repletion SHIRLEY, resolved creatinine improved Renal US neg avoid nephrotoxic agents Acute on chronic migraines Offered subq Imitrex but patient declined IV morphine prn Anxiety IV Ativan low dose prn History of hypothyroidism TSH WNL Continue on IV levothyroxine - Time Spent with Patient Total time spent providing and/or coordinating discharge services: Greater than 30 minutes - Quality: VTE Deep Vein Thrombosis/Pulmonary Embolism Present on Admission: No Exam Vital signs: Vital Signs 11/07/17 16:00 11/08/17 08:00 Temperature 97.6 F 98.5 F Pulse Rate 91 H 72 Respiratory Rate 17 20 Blood Pressure 144/76 H 117/55 L Pulse Oximetry 100 97 Intake & Output 11/07/17 11/08/17 11/08/17 18:59 06:59 18:59 Intake Total 1600 / 1600 465 / 465 846 / 846 Output Total 600 / 600 Balance 1600 / 1600 -135 / -135 846 / 846 Weight 78.5 kg Intake: IV 1600 / 1600 465 / 465 846 / 846 D5W/NS + KCL 20 mEq Inj 1,000 1000 / 1000 ML @ 50 mls/hr IV.CONT .Q20H [facility] Rx#:[id number] Ofirmev Inj 650 mg In 65 ml @ 65 / 65 400 mls/hr IV.SIG ONCE ONE Rx#: [id number] Cipro 400 MG/200 ML Inj 400 mg 200 / 200 200 / 200 In 200 ml @ 200 mls/hr IV.SIG Q12H [facility] Rx#:[id number] Intralipid 20% Inj 250 ML @ 10 97 / 97 mls/hr IV.SIG Q24H [facility] Rx#: [id number] MVI-12 Inj 10 ML Folvite Inj 1 649 / 649 MG In TPN Fluid 2 Liter 2,000 ML @ 60 mls/hr IV.SIG DAILY@ 2000 [facility] Rx#:[id number] KCl 10 mEq Premix Inj 10 meq In 200 / 200 100 / 100 100 ml @ 100 mls/hr IV.SIG Q1H [facility] Rx#:[id number] Flagyl 500 MG Inj 100 ML @ 100 200 / 200 100 / 100 100 / 100 mls/hr IV.SIG Q8H [facility] Rx#: [id number] Oral 0 / 0 Output: Urine 600 / 600 Other: # Voids 5 1 Date of Last Bowel Movement 11/07/17 11/07/17 # Bowel Movements 2 Narrative: GENERAL: WDWN female, in no acute distress. Awake and alert. SKIN: Warm and dry. No generalized rash. HEENT: Atraumatic. Normocephalic. Pupils equal and round. No scleral icterus. No injection or drainage. ENT: No nasal bleeding or discharge. Mucous membranes pink and moist. NECK: Trachea midline. CARDIOVASCULAR: Regular rate and rhythm. RESPIRATORY: No accessory muscle use. Clear to auscultation. Breath sounds equal bilaterally. GASTROINTESTINAL: Abdomen soft, non-tender, nondistended. MUSCULOSKELETAL: Extremities without clubbing, cyanosis, or edema. No obvious deformities. NEUROLOGICAL: Awake and alert. No obvious cranial nerve deficits. Motor grossly within normal limits. Able to move all extremities spontaneously. Nonfocal. Normal speech. PSYCHIATRIC: Anxious mood. Depressed affect; insight and judgment normal. Results Procedures completed during hospitalization: PICC line placement Labs on day of discharge: Labs from last 24 hours 11/08/17 11/08/17 06:39 04:50 Sodium 142 Potassium 3.8 Chloride 107 Carbon Dioxide 27.6 Anion Gap 7 BUN 9 Creatinine 0.89 Estimated GFR 66 L POC Glucose 100 Random Glucose 98 Calcium 8.5 - Impressions ITS Impressions Abdomen/Pelvis CT 11/05/17 14:26 CONCLUSION: Free intraperitoneal air following EGD. Gastrografin swallow is pending. Chest CT 11/05/17 14:26 CONCLUSION: 1. Free mediastinal air and intraperitoneal air as described above following EGD. Upper GI/Barium Swallow X-Ray 11/05/17 15:41 CONCLUSION: Point of leak is not identified. Abdomen/Bladder Ultrasound 11/06/17 00:00 CONCLUSION: Ultrasound appearance of the kidneys and urinary bladder within normal limits. Free intraperitoneal air again noted. Chest X-Ray 11/07/17 11:48 CONCLUSION: Free intraperitoneal air. PICC line as above. Discharge Plan - Discharge Disposition Patient Disposition: W/Home Health Service - Discharge Condition Condition: Stable - Discharge Order Discharge Orders: Discharge Order (Routine); Ordered 11/08/17 Ordered By: Sia Liriano - Discharge Details Anticipated Discharge Date: 11/05/17 - Physicians Team Primary Care Provider: Segundo Hunt Attending Provider: Gwen Uribe Other Providers: Taz Coyne MD ; Kevin [facility],[place]
--- NOTE | 2017-11-08 11:20 | P.DCO ---
Post Hospital Infusion Therapy Location of Infusion Therapy: [facility] IV Infusion Order Appointment Date: 11/08/17 Patient Weight: 78.5 kg - Administer Medication Levothyroxine Directions: q 24 hours (37.5mcg IV daily) - Additional Information Venous Access: PICC Line Additional Instructions: [x] Peripheral flush and dressing changes per protocol [x] Implanted port and central linen grader: * Implanted port: 10 ml Normal Saline followed by 5 ml Heparin 100 units/ml Heparin flush after each use and monthly to maintain. [] May leave port accessed during therapy. [] May leave peripheral site accessed for duration of therapy. [x] If patient has SOB or respiratory distress, check oxygen saturation. If less than 90% or clinical signs of respiratory distress, administer oxygen at 2 L/min. via nasal cannula and notify physician. [x] Anaphylaxis/Reaction orders: * Stop infusion. * Keep IV line open with saline flush. * Notify physician. * Monitor vital signs every 15 minutes until symptoms resolve. * Check Oxygen saturation; Oxygen at 2 L/min. via nasal cannula if less than 90% or clinical signs of respiratory distress. * Administer diphenhydramine (Benadryl) 25 mg IV STAT, (unless patient has received as pre-med). May repeat once, if necessary. * Solu-Cortef 250 mg IVP over 30-60 seconds, use 100 mg vials for each dissolution. * Epinephrine (1mg/1 ml) 0.3 mg subcutaneously or IVP now with any signs of respiratory distress. * Check with physician for new additional pre-med orders if patient is re- challenged or re-treated. [x] May remove PICC line when treatment complete, after confirming with Physician. [x] If the patient is admitted to the hospital, the ED, or transferred via [facility] , complete transfer form including medication reconciliation order sheet. Allergies broccoli Allergy (Severe, Verified 11/05/17 14:18) Gastrointestinal Upset prednisone Allergy (Severe, Unverified 11/05/17 13:35) Hallucinations soy fiber Allergy (Severe, Unverified 10/11/16 02:25) MIGRAINE prochlorperazine Allergy (Mild, Unverified 10/11/16 02:25) THROAT SWELLS sesame oil Allergy (Mild, Verified 11/05/17 13:35) Hives sesame seed Allergy (Mild, Verified 11/05/17 13:35) Hives lecithin, soy Adverse Reaction (Severe, Unverified 10/11/16 02:25) MIGRAINE soy Adverse Reaction (Severe, Unverified 10/11/16 02:25) MIGRAINE soybean Adverse Reaction (Severe, Unverified 10/11/16 02:25) MIGRAINE
--- NOTE | 2017-11-08 13:22 | P.PNGS ---
Subjective Patient reports: no new complaints, feels better, flatus, bowel movement Physical Exam Vital signs: Vital Signs 11/07/17 16:00 11/08/17 08:00 Temperature 97.6 F 98.5 F Pulse Rate 91 H 72 Respiratory Rate 17 20 Blood Pressure 144/76 H 117/55 L Pulse Oximetry 100 97 Intake & Output 11/07/17 11/08/17 11/08/17 18:59 06:59 18:59 Intake Total 1600 / 1600 465 / 465 846 / 846 Output Total 600 / 600 Balance 1600 / 1600 -135 / -135 846 / 846 Weight 78.5 kg Intake: IV 1600 / 1600 465 / 465 846 / 846 D5W/NS + KCL 20 mEq Inj 1,000 1000 / 1000 ML @ 50 mls/hr IV.CONT .Q20H [facility] Rx#:[id number] Ofirmev Inj 650 mg In 65 ml @ 65 / 65 400 mls/hr IV.SIG ONCE ONE Rx#: [id number] Cipro 400 MG/200 ML Inj 400 mg 200 / 200 200 / 200 In 200 ml @ 200 mls/hr IV.SIG Q12H [facility] Rx#:[id number] Intralipid 20% Inj 250 ML @ 10 97 / 97 mls/hr IV.SIG Q24H [facility] Rx#: [id number] MVI-12 Inj 10 ML Folvite Inj 1 649 / 649 MG In TPN Fluid 2 Liter 2,000 ML @ 60 mls/hr IV.SIG DAILY@ 2000 [facility] Rx#:[id number] KCl 10 mEq Premix Inj 10 meq In 200 / 200 100 / 100 100 ml @ 100 mls/hr IV.SIG Q1H [facility] Rx#:[id number] Flagyl 500 MG Inj 100 ML @ 100 200 / 200 100 / 100 100 / 100 mls/hr IV.SIG Q8H [facility] Rx#: [id number] Oral 0 / 0 Output: Urine 600 / 600 Other: # Voids 5 1 Date of Last Bowel Movement 11/07/17 11/08/17 # Bowel Movements 2 - Constitutional no acute distress - Routine Respiratory Exam Present: CTA bilaterally - Routine Cardiovascular Exam Present: RRR, S1, S2 - Routine Abdominal Exam Present: soft (NT/ND) Assessment and Plan - Plan esophageal perf s/p dilation of schticks ring, pt stable, afebrile, wbc normal PLAN npo tpn, ivf abx pain control abdominal exams, non operative tx at this time. [facility] tpn- set up d/c planning for tomorrow
[2017-11-08] MEDS: KCL 20 mEq/D5W/NaCl 0.9% Inj 1,000 ML IV.CONT SCH (13:39)
--- NOTE | 2017-11-08 15:07 | P.PNGI ---
Subjective Interval history: Pt sound asleep. VSS, Afebrile. Her nurse reports she is doing well today with no complaints. PICC line working well. TPN started. CXR yesterday shows FA under the diaphragm still. I discussed with Dr Coyne yesterday and saw his note from today. The plan is to discharge her tomorrow on home TPN and NPO status. Likely repeat esophagram next week before starting clear liquids. Physical Exam Vital signs: Vital Signs 11/07/17 16:00 11/08/17 08:00 11/08/17 13:49 Temperature 97.6 F 98.5 F 98.1 F Pulse Rate 91 H 72 95 H Respiratory Rate 17 20 20 Blood Pressure 144/76 H 117/55 L 115/72 Pulse Oximetry 100 97 97 Intake & Output 11/07/17 11/08/17 11/08/17 18:59 06:59 18:59 Intake Total 1600 / 1600 465 / 465 846 / 846 Output Total 600 / 600 Balance 1600 / 1600 -135 / -135 846 / 846 Weight 78.5 kg Intake: IV 1600 / 1600 465 / 465 846 / 846 D5W/NS + KCL 20 mEq Inj 1,000 1000 / 1000 ML @ 50 mls/hr IV.CONT .Q20H [facility] Rx#:[id number] Ofirmev Inj 650 mg In 65 ml @ 65 / 65 400 mls/hr IV.SIG ONCE ONE Rx#: [id number] Cipro 400 MG/200 ML Inj 400 mg 200 / 200 200 / 200 In 200 ml @ 200 mls/hr IV.SIG Q12H [facility] Rx#:[id number] Intralipid 20% Inj 250 ML @ 10 97 / 97 mls/hr IV.SIG Q24H [facility] Rx#: [id number] MVI-12 Inj 10 ML Folvite Inj 1 649 / 649 MG In TPN Fluid 2 Liter 2,000 ML @ 60 mls/hr IV.SIG DAILY@ 2000 [facility] Rx#:[id number] KCl 10 mEq Premix Inj 10 meq In 200 / 200 100 / 100 100 ml @ 100 mls/hr IV.SIG Q1H [facility] Rx#:[id number] Flagyl 500 MG Inj 100 ML @ 100 200 / 200 100 / 100 100 / 100 mls/hr IV.SIG Q8H [facility] Rx#: [id number] Oral 0 / 0 Output: Urine 600 / 600 Other: # Voids 5 1 Date of Last Bowel Movement 11/07/17 11/08/17 # Bowel Movements 2 Results - Labs CBC & Chem 7: 11/06/17 08:17 11/08/17 04:50 Laboratory Results - last 24 hr 11/08/17 11/08/17 11/08/17 04:50 06:39 13:52 Sodium 142 Potassium 3.8 Chloride 107 Carbon Dioxide 27.6 Anion Gap 7 BUN 9 Creatinine 0.89 Estimated GFR 66 L POC Glucose 100 91 Random Glucose 98 Calcium 8.5 - Procedures PICC line placement Assessment and Plan (1) Esophageal perforation Status: Acute Code(s): K22.3 - Perforation of esophagus
[2017-11-08] MEDS: Pantoprazole Inj 40 MG Vial IV.PUSH SCH (21:35)
[2017-11-08] MEDS: Multivitamin Inj 10 ML, Folic Acid Inj 1 MG in TPN Fluid 2 Liter 2,000 ML IV.SIG SCH (21:35)
[2017-11-09 00:48] VITALS: RESP 18
[2017-11-09] MEDS ORDERED: Acetaminophen Inj 650 MG/65 ML VIAL IV.SIG ONE (05:15)
[2017-11-09 07:19] LABS: Baso % (Auto) 0.4 % (0.0-2.0); Eos # (Auto) 0.6 th/mm3 (0.0-0.4); Eos % (Auto) 8.1 % (0.0-4.0); Hematocrit 41.4 % (35.0-46.0); Hemoglobin 13.9 gm/dL (11.6-15.3); Lymph # (Auto) 1.6 th/mm3 (1.0-4.8); Lymph % (Auto) 21.1 % (9.0-44.0); Mean Corpuscular HGB Conc 33.7 % (32.0-36.0); Mean Corpuscular Hemoglobin 30.5 pg (27.0-34.0); Mean Corpuscular Volume 90.5 fL (80.0-100.0); Mean Platelet Volume 8.1 fL (7.0-11.0); Mono # (Auto) 0.7 th/mm3 (0.0-0.9); Mono % (Auto) 9.4 % (0.0-8.0); Neut # (Auto) 4.6 th/mm3 (1.8-7.7); Platelet Count 234 th/mm3 (150-450); Red Blood Count 4.58 mil/mm3 (4.00-5.30); Red Cell Distribution Width 13.8 % (11.6-17.2); White Blood Count 7.6 th/mm3 (4.0-11.0)
[2017-11-09 07:33] LABS: Calcium 8.7 mg/dL (8.5-10.1); Potassium 3.8 meq/L (3.5-5.1)
--- NOTE | 2017-11-09 08:07 | P.PN ---
Subjective Interval history: Patient is stable. No significant change. She denies any fever or chills. She denies any nausea, vomiting or abdominal pain. Physical Exam Vital signs: Vital Signs 11/08/17 13:49 11/08/17 16:50 11/08/17 20:00 Temperature 98.1 F 97.5 F L 98.2 F Pulse Rate 95 H 79 82 Respiratory Rate 20 20 21 Blood Pressure 115/72 138/80 125/79 Pulse Oximetry 97 99 98 11/09/17 00:00 11/09/17 04:00 Temperature 97.5 F L 98.9 F Pulse Rate 81 86 Respiratory Rate 18 18 Blood Pressure 119/66 127/88 Pulse Oximetry 95 99 Intake & Output 11/08/17 11/09/17 11/09/17 18:59 06:59 18:59 Intake Total 1613 / 1613 747.2 / 747.2 Output Total 1650 / 1650 1000 / 1000 Balance -37 / -37 -252.8 / -252.8 Weight 78.5 kg 81.2 kg Intake: IV 1613 / 1613 747.2 / 747.2 Intralipid 20% Inj 250 ML @ 10 207 / 207 43 / 43 mls/hr IV.SIG Q24H [facility] Rx#: [id number] MVI-12 Inj 10 ML Folvite Inj 1 1306 / 1306 704.2 / 704.2 MG In TPN Fluid 2 Liter 2,000 ML @ 60 mls/hr IV.SIG DAILY@ 2000 [facility] Rx#:[id number] Flagyl 500 MG Inj 100 ML @ 100 100 / 100 mls/hr IV.SIG Q8H [facility] Rx#: [id number] Output: Urine 1650 / 1650 1000 / 1000 Other: Date of Last Bowel Movement 11/08/17 11/07/17 Narrative: GENERAL: WDWN female, INAD. Awake and alert. SKIN: Warm and dry. No generalized rash. HEENT: Atraumatic. Normocephalic. Pupils equal and round. No scleral icterus. No injection or drainage. No nasal bleeding or discharge. Mucous membranes pink and moist. NECK: Trachea midline. CARDIOVASCULAR: Regular rate and rhythm. RESPIRATORY: No accessory muscle use. Clear to auscultation. Breath sounds equal bilaterally. GASTROINTESTINAL: Abdomen soft, non-tender, nondistended. MUSCULOSKELETAL: Extremities without clubbing, cyanosis, or edema. No obvious deformities. NEUROLOGICAL: Awake and alert. No obvious cranial nerve deficits. Motor grossly within normal limits. Able to move all extremities spontaneously. Nonfocal. Normal speech. PSYCHIATRIC: Anxious mood. Depressed affect; insight and judgment normal. Results - Labs CBC & Chem 7: 11/09/17 06:30 11/09/17 06:30 Laboratory Results - last 24 hr 11/08/17 11/08/17 11/09/17 13:52 21:32 06:30 WBC 7.6 RBC 4.58 Hgb 13.9 Hct 41.4 MCV 90.5 MCH 30.5 MCHC 33.7 RDW 13.8 Plt Count 234 MPV 8.1 Neut % (Auto) 61.0 Lymph % (Auto) 21.1 [place] % (Auto) 9.4 H Eos % (Auto) 8.1 H Baso % (Auto) 0.4 Neut # (Auto) 4.6 Lymph # (Auto) 1.6 [place] # (Auto) 0.7 Eos # (Auto) 0.6 H Baso # (Auto) 0.0 WBC Differential . Differential Comment Auto diff final Sodium Potassium Chloride Carbon Dioxide Anion Gap BUN Creatinine Estimated GFR POC Glucose 91 99 Random Glucose Calcium 11/09/17 11/09/17 06:30 06:37 WBC RBC Hgb Hct MCV MCH MCHC RDW Plt Count MPV Neut % (Auto) Lymph % (Auto) [place] % (Auto) Eos % (Auto) Baso % (Auto) Neut # (Auto) Lymph # (Auto) [place] # (Auto) Eos # (Auto) Baso # (Auto) WBC Differential Differential Comment Sodium 143 Potassium 3.8 Chloride 107 Carbon Dioxide 30.0 Anion Gap 6 BUN 11 Creatinine 0.81 Estimated GFR 73 L POC Glucose 95 Random Glucose 95 Calcium 8.7 - Procedures PICC line placement Assessment and Plan - Plan 57-year-old female with esophageal perforation s/p EGD Patient discharged yesterday. Discharge held pending home infusion being set up thru [place]. Patient is stable. No significant change. No overnight events. Esophageal perforation Free Intraperitoneal air s/p EGD procedure History of Schatzki's ring status post dilatation in the past Barium swallow study shows no air leak GS following, appreciate assistance. Nonsurgical management at this time. GI service following, appreciate assistance Conservative management- bowel rest, IVF, antibiotics Keep n.p.o. PICC line placed. On TPN. Hypokalemia Mag 2.2 resolved s/p IV repletion SHIRLEY, resolved creatinine improved, now WNL Renal US neg avoid nephrotoxic agents Acute on chronic migraines Offered subq Imitrex but patient declined IV morphine prn Anxiety IV Ativan low dose prn History of hypothyroidism TSH WNL Continue on IV levothyroxine PPI for GI prophylaxis Bilateral SCDs for DVT prophylaxis Discussed Condition With: patient, nursing staff, Dr. Uribe Discharge Planning: Not ready for discharge. Discharge pending GI and GS clearance.
[2017-11-09 08:12] VITALS: BP 120/77; PULSE 61; TEMP 97.6; O2SAT 96
[2017-11-09] MEDS: Heparin Central Flush 100 UNIT/ML 5 ML Vial IV.FLUSH SCH (08:34)
[2017-11-09] MEDS: KCL 20 mEq/D5W/NaCl 0.9% Inj 1,000 ML IV.CONT SCH (09:30)
--- NOTE | 2017-11-09 14:23 | P.PNGS ---
Subjective Patient reports: no new complaints, feels better, flatus (no fevers, denies pain ) Physical Exam Vital signs: Vital Signs 11/08/17 16:50 11/08/17 20:00 11/09/17 00:00 Temperature 97.5 F L 98.2 F 97.5 F L Pulse Rate 79 82 81 Respiratory Rate 20 21 18 Blood Pressure 138/80 125/79 119/66 Pulse Oximetry 99 98 95 11/09/17 04:00 11/09/17 08:10 Temperature 98.9 F 97.6 F Pulse Rate 86 61 Respiratory Rate 18 18 Blood Pressure 127/88 120/77 Pulse Oximetry 99 96 Intake & Output 11/08/17 11/09/17 11/09/17 18:59 06:59 18:59 Intake Total 1613 / 1613 747.2 / 747.2 0 / 0 Output Total 1650 / 1650 1000 / 1000 Balance -37 / -37 -252.8 / -252.8 0 / 0 Weight 78.5 kg 81.2 kg Intake: IV 1613 / 1613 747.2 / 747.2 0 / 0 Ofirmev Inj 650 mg In 65 ml @ 0 / 0 400 mls/hr IV.SIG ONCE ONE Rx#: [id number] Intralipid 20% Inj 250 ML @ 10 207 / 207 43 / 43 mls/hr IV.SIG Q24H [facility] Rx#: [id number] MVI-12 Inj 10 ML Folvite Inj 1 1306 / 1306 704.2 / 704.2 MG In TPN Fluid 2 Liter 2,000 ML @ 60 mls/hr IV.SIG DAILY@ 2000 [facility] Rx#:[id number] Flagyl 500 MG Inj 100 ML @ 100 100 / 100 mls/hr IV.SIG Q8H [facility] Rx#: [id number] Output: Urine 1650 / 1650 1000 / 1000 Other: Date of Last Bowel Movement 11/08/17 11/07/17 11/08/17 - Routine Respiratory Exam Present: CTA bilaterally - Routine Cardiovascular Exam Present: RRR - Routine Abdominal Exam Present: soft (NT/ND) Assessment and Plan - Plan esophageal perf s/p dilation of schticks ring, pt stable, afebrile, wbc normal PLAN npo tpn, ivf abx pain control abdominal exams, non operative tx at this time. [facility] tpn- set up d/c Home today with tpn [facility], npo
== END 2017-11-09 10:38 | disposition home health service (06) ==
LOC: NEPC 12:23 → NEDA 16:48 → N05 21:11
PROVIDERS: ADMIT Family Medicine; ATTEND Family Medicine